=== PATIENT | male | born 1940 | race Caucasian/White ===

== ENCOUNTER 2022-07-09 08:30 | Outpatient (CLI) | payer MEDICARE, SELFPAY ==
--- NOTE | 2022-07-09 09:05 | ECHO_ITS ---
Patient Info Name: Pradeep Johnson Age: 81 years : 1940 Gender: Male Ht: 74 in Wt: 220 lbs BSA: 2.30 m2 HR: 73 bpm BP: 145 / 74 mmHg Technical Quality: Good Exam Date: 07/09/2022 9:34 AM Exam Location: [facility] Patient Status: Outpatient Admit Date: 07/09/2022 Staff Ordering Physician: Sonali Vasquez MD Wash Tub Machine Operator: Benito Georges RDCS Attending Provider: Sonali Vasquez MD Exam Type: CA echo doppler color flow Study Info Indications R01.1 - Cardiac murmur, unspecified Complete two-dimensional, color flow and Doppler transthoracic echocardiogram is performed. Summary 1. Complete two-dimensional, color flow and Doppler transthoracic echocardiogram is performed. 2. Left ventricular chamber dimension is normal. 3. Left ventricular systolic function is normal, estimated at 60-65%. 4. The left ventricular diastolic function is grade I diastolic dysfunction. 5. E/e' 12 is mildly elevated. 6. Left atrial chamber dimension is mildly enlarged. 7. There is mild aortic valve sclerosis. 8. The mitral valve has moderately calcified leaflets and moderately calcified annulus. 9. There is mild mitral valve regurgitation. 10. There is mild tricuspid valve regurgitation. Left Ventricle E/e' 12 is mildly elevated. Left ventricular chamber dimension is normal. Left ventricular systolic function is normal, estimated at 60-65%. The left ventricular diastolic function is grade I diastolic dysfunction. Right Ventricle Right ventricular systolic function is normal and with normal TAPSE 2.6 cm. Right ventricular chamber dimension is normal. Left Atria Left atrial chamber dimension is mildly enlarged. Right Atria Right atrial chamber dimension is normal. Aortic Valve The aortic valve is trileaflet. There is mild aortic valve sclerosis. There is no aortic valve stenosis. There is no aortic valve regurgitation. Pulmonic Valve There is no pulmonic regurgitation. Mitral Valve The mitral valve has moderately calcified leaflets and moderately calcified annulus. There is no mitral valve stenosis. There is mild mitral valve regurgitation. Tricuspid Valve There is mild tricuspid valve regurgitation. RVSP is not calculated due to an inadequate TR jet. Pericardium/Pleural There is no pericardial effusion. Inferior Vena Cava Normal inferior vena cava with >50% collapse upon inspiration consistent with normal right atrial pressure, 5 mmHg. Aorta The aortic root size at the sinus of Valsalva is normal. Left Ventricular Outflow Tract Name Value Normal LVOT 2D LVOT Diameter 2.3 cm LVOT Doppler LVOT Peak Gradient 5 mmHg LVOT Mean Gradient 3 mmHg LVOT VTI 21 cm LVOT VTI/AV VTI Ratio 0.8 LVOT Stroke Volume 83 ml LVOT CO 6.4 l/min LVOT CI 2.8 l/min/m2 Mitral Valve Name
== END 2022-07-09 08:31 | disposition home or self-care (01) ==
PROVIDERS: PCP Family Medicine; Visit Provider Family Medicine
DX: R01.1 Cardiac murmur, unspecified (principal); I10 Essential (primary) hypertension; I34.0 Nonrheumatic mitral (valve) insufficiency; I35.1 Nonrheumatic aortic (valve) insufficiency; I36.1 Nonrheumatic tricuspid (valve) insufficiency
CPT/HCPCS: 93306

== ENCOUNTER 2022-12-24 10:29 | Outpatient (CLI) | payer MEDICARE, SELFPAY ==
[2022-12-24 15:24] LABS: Alanine Aminotransferase 21 U/L (6-50); Albumin Level 4.3 g/dL (3.5-5.1); Alkaline Phosphatase 100 U/L (38-126); Anion Gap 6 mmol/L (8-16); Aspartate Amino Transferase 29 U/L (17-59); Bilirubin,Total 0.6 mg/dL (0.2-1.3); Blood Urea Nitrogen 11 mg/dL (9-20); Calcium 9.3 mg/dL (8.4-10.2); Carbon Dioxide 31 mmol/L (22-30); Chloride 101 mmol/L (98-107); Estimated Glomerular Filt Rate > 60; Glucose 98 mg/dL (65-110); Potassium 4.6 mmol/L (3.4-5.0); Sodium 138 mmol/L (137-145)
[2022-12-24 16:22] LABS: Hemoglobin A1C 5.7 % (<5.7)
== END 2022-12-24 10:30 | disposition home or self-care (01) ==
LOC: ANHGOSHLAB 10:31
PROVIDERS: PCP Family Medicine; Visit Provider Family Medicine
DX: R73.03 Prediabetes (principal); I10 Essential (primary) hypertension
CPT/HCPCS: 36415; 80053; 83036

== ENCOUNTER 2023-03-16 09:00 | Outpatient (NON) | payer MEDICARE, SELFPAY | END 2023-03-16 09:01 | disposition home or self-care (01) | LOC: ANHLAB 03-17 07:14 | PROVIDERS: PCP Family Medicine; Visit Provider Internal Medicine Gastroenterology | DX: Z12.11 Encounter for screening for malignant neoplasm of colon (principal) | CPT/HCPCS: 88305 ==

== ENCOUNTER 2023-03-16 10:11 | Day surgery (SDC) | payer MEDICARE, SELFPAY ==
[2023-02-06 11:25] VITALS: BMI 29.6
--- NOTE | 2023-03-15 12:55 | PM.HPGS ---
History of Present Illness History of Present Illness Consent: Risks, benefits, and alternatives have been discussed and questions answered. Patient agrees to proceed with procedure. Chief complaint: History Colon Polyps Narrative: Pradeep Johnson is a 82 year old male referred for colon cancer screening. He has history of polyps and also has a history of having pancreatic cancer for which he had a Whipple procedure Review of Systems Review of Systems: All systems reviewed & are unremarkable except as noted in HPI and below PMFSH Past Medical History Medical History BPH (benign prostatic hyperplasia) Environmental allergies Essential (primary) hypertension GERD without esophagitis History of colon polyps History of pancreatic cancer (~2014) OAB (overactive bladder) Prediabetes Surgical History Surgical History H/O vasectomy (~1970) History of cataract surgery (~2021) History of colonoscopy with polypectomy (~2017) Dr Pathak History of pancreatectomy (~2014) Whipple Family History Family History Other Family history of malignant neoplasm Hypertension Social History Social History Smoking status: Never smoker Alcohol intake: current Drinks per week: 7 Alcohol use details: 1 beer daily Substance use: never Substance use type: does not use Lack of Transportation: No Lack of Food: Never True Current Housing: I Have Housing Concerned About Future Housing: No Difficulty Paying Gas/Electric Bills: No Difficulty Paying for Meds: No Currently Unemployed: No Education: High School Diploma/GED Difficulty w/ Childcare or Family Care: No Living arrangements: with family Additional living arrangements comments: Occupation/Education: retired Gender identity (if verbalized by the patient): Male Sexual Orientation (if Verbalized by the Patient): Straight or Heterosexual Spiritual care concerns: No Agree to blood products: Yes Meds Home Medications and Allergies Home Medications Medication Instructions Recorded Confirmed Type aspirin 81 mg tablet,delayed 81 mg PO DAILY 11/08/20 03/16/23 History release (Adult Aspirin Regimen) cholecalciferol (vitamin D3) 50 50 mcg PO DAILY 03/18/21 07/24/23 History mcg (2,000 unit) capsule xpcbyz-alrcukwt-yvpcbkp 2 cap PO BID 11/08/20 03/16/23 History 24,000-76,000-120,000 unit capsule,delayed rel (Creon) oxybutynin chloride 5 mg 5 mg PO DAILY 06/18/22 03/16/23 History tablet,extended release 24 hr cyanocobalamin (vitamin B-12) 1,000 mcg sublingual DAILY #90 tabs 07/02/22 03/16/23 Rx 1,000 mcg sublingual tablet tamsulosin 0.4 mg capsule (Flomax) 0.4 mg PO DAILY #90 caps 11/06/22 03/16/23 Rx metoprolol succinate 25 mg 25 mg PO DAILY #90 tabs 12/12/22 03/16/23 Rx tablet,extended release 24 hr pantoprazole 20 mg tablet,delayed 20 mg PO QAM #90 tabs 12/12/22 03/16/23 Rx release amlodipine 10 mg tablet 10 mg PO DAILY #90 tabs 02/05/23 03/16/23 Rx Claritin 10 mg BYMOUTH DAILY 03/16/23 03/16/23 History Allergies Allergy/AdvReac Type Severity Reaction Status Date / Time povidone-iodine Allergy Unknown Unknown Verified 03/16/23 11:27 soap Allergy Unknown unknown Verified 03/16/23 11:27 Exam Resp: Auscultation: clear to auscultation bilaterally Cardio: Rate: regular rate Rhythm: regular rhythm GI: GI Palp: Yes Soft to palpation and No Tenderness to palpation present (GI) Assessment and Plan Assessment and plan (1) Colon cancer screening: Code(s): Z12.11 - Encounter for screening for malignant neoplasm of colon Status: Acute Assessment and Plan: Colonoscopy with possible biopsy or polypectomy or cautery or injection of substances.
--- NOTE | 2023-03-16 07:04 | WPDANESEPPF ---
Anes - Initial Pre Proc Eval Procedure: Operation Date: 03/16/23 12:30 Proposed Procedures p Diagnostic Colonoscopy - Avery Dumas MD Date/Time: 03/16/23 07:04 Surgeon: Avery Dumas MD Pre Op Diagnosis: History Colon Polyps Patient Data Age: 82 Gender: M Height: 1.88 m Weight: 105 kg Allergies Allergy/AdvReac Type Severity Reaction Status Date / Time povidone-iodine Allergy Unknown Unknown Verified 03/16/23 11:27 soap Allergy Unknown unknown Verified 03/16/23 11:27 Home Medications Medication Instructions Recorded Confirmed Type aspirin 81 mg tablet,delayed 81 mg PO DAILY 11/08/20 03/16/23 History release (Adult Aspirin Regimen) cholecalciferol (vitamin D3) 50 50 mcg PO DAILY 11/08/20 03/16/23 History mcg (2,000 unit) capsule dcrely-bfnektsc-vuczjok 2 cap PO BID 11/08/20 03/16/23 History 24,000-76,000-120,000 unit capsule,delayed rel (Creon) oxybutynin chloride 5 mg 5 mg PO DAILY 06/18/22 03/16/23 History tablet,extended release 24 hr cyanocobalamin (vitamin B-12) 1,000 mcg sublingual DAILY #90 tabs 07/02/22 03/16/23 Rx 1,000 mcg sublingual tablet tamsulosin 0.4 mg capsule (Flomax) 0.4 mg PO DAILY #90 caps 11/06/22 03/16/23 Rx metoprolol succinate 25 mg 25 mg PO DAILY #90 tabs 12/12/22 03/16/23 Rx tablet,extended release 24 hr pantoprazole 20 mg tablet,delayed 20 mg PO QAM #90 tabs 12/12/22 03/16/23 Rx release amlodipine 10 mg tablet 10 mg PO DAILY #90 tabs 02/05/23 03/16/23 Rx Claritin 10 mg BYMOUTH DAILY 03/16/23 03/16/23 History Patient hx anesthesia problems: none Family hx anesthesia problems: none Results Review: All pre-operative results and documents have been reviewed as part of the pre-operative evaluation. FORMERLY [facility], [facility] Past Medical History Medical History BPH (benign prostatic hyperplasia) Environmental allergies Essential (primary) hypertension GERD without esophagitis History of colon polyps History of pancreatic cancer (~2014) OAB (overactive bladder) Prediabetes Surgical History Surgical History H/O vasectomy (~1970) History of cataract surgery (~2021) History of colonoscopy with polypectomy (~2017) Dr Pathak History of pancreatectomy (~2014) Whipple Family History Family History Other Family history of malignant neoplasm Hypertension Social History Social History Smoking status: Never smoker Alcohol intake: current Drinks per week: 7 Alcohol use details: 1 beer daily Substance use: never Substance use type: does not use Lack of Transportation: No Lack of Food: Never True Current Housing: I Have Housing Concerned About Future Housing: No Difficulty Paying Gas/Electric Bills: No Difficulty Paying for Meds: No Currently Unemployed: No Education: High School Diploma/GED Difficulty w/ Childcare or Family Care: No Living arrangements: with family Additional living arrangements comments: Occupation/Education: retired Gender identity (if verbalized by the patient): Male Sexual Orientation (if Verbalized by the Patient): Straight or Heterosexual Spiritual care concerns: No Agree to blood products: Yes Anes - Eval Final PreProcedure Day of Procedure 03/16/23 07:04 Patient weight: overweight Heart: regular rate and rhythm Lungs: clear to auscultation Airway: Mallampati scale class II Neurological: alert and oriented Last oral intake: >/= 8 hours ASA classification: III Emergent: no Anesthetic plan: proceed Anesthesia type and monitoring: general GIVS and standard monitoring Results Review: All pre-operative results and documents have been reviewed as part of the pre-operative evaluation. Informed Consent: The patient's anesthetic plan and its attendant risks and
[2023-03-16 11:36] VITALS: BP 158/78; PULSE 92; RESP 16; TEMP 37; O2SAT 94
[2023-03-16] MEDS: LACTATED RINGERS 1,000 ML 150 ML IV CONT (11:45)
[2023-03-16 12:30] VITALS: BP 127/66; PULSE 70; RESP 16; O2SAT 95
[2023-03-16 12:40] VITALS: BP 117/70; PULSE 70; RESP 20; O2SAT 99
[2023-03-16 12:50] VITALS: BP 139/77; PULSE 66; RESP 18; O2SAT 99
--- NOTE | 2023-03-16 13:55 | WPDANESPN ---
Anes - Prog Note Post-Op Date/Time: 03/16/23 13:55 Cardiovascular status: normal Respiratory status: normal Airway patency: baseline Mental status: baseline Post-Op hydration status: normal Vital Signs: Last Vital Signs Temp 37.0 C 03/16/23 11:36 Pulse 66 03/16/23 12:50 Resp 18 03/16/23 12:50 BP 139/77 03/16/23 12:50 Pulse Ox 99 03/16/23 12:50 O2 Del Method Room Air 03/16/23 12:50 Pain Score (VAS): 0 I/O: Intake & Output 03/15/23 03/16/23 03/16/23 23:59 07:59 15:59 Intake Total 300 Balance 300 Post-procedural complaints: none Patient Feedback: Patient satisfied with anesthetic care. Other Findings: Patient vital signs back to baseline. Patient denies nausea and vomiting. Patient's pain under control. Patient OK for discharge.
== END 2023-03-16 13:12 | disposition home or self-care (01) ==
PROVIDERS: PCP Family Medicine; Visit Provider Internal Medicine Gastroenterology
PROC: 0DJD8ZZ Inspection of Lower Intestinal Tract, Via Natural or Artificial Opening Endoscopic (ICD-10-PCS; CPT 45378; principal; 2023-03-16 12:30)
DX: Z12.11 Encounter for screening for malignant neoplasm of colon (principal)
CPT/HCPCS: 45385

== ENCOUNTER 2023-07-02 13:26 | Inpatient (IN) | payer MEDICARE, SELFPAY ==
[2023-07-02] VITALS (7 sets, daily range): BP systolic 106–146; BP diastolic 48–93; PULSE 84–90; RESP 14–21; TEMP 36.6–37.1; O2SAT 98–100; BMI 27.1
--- NOTE | ~2023-07-02 | CT_ITS ---
EXAMINATION: CTA abdomen pelvis DATE: 07/02/2023 14:11 INDICATION: Melanoma and syncope TECHNIQUE: Computed tomographic angiography (CTA) of the abdomen and pelvis was performed with 100 mL Omnipaque-350 intravenous contrast. Maximum intensity projection 3D-reconstructions of the aorta and other arteries were constructed by the technologist on a separate workstation. The dose-length produ ct (DLP) was 601.30 mGy-cm. Automated exposure control and iterative reconstruction technique were em ployed. COMPARISON: 11/10/2014 FINDINGS: Minimal dependent atelectasis is present in the lung bases. The heart size is normal. No an eurysm or dissection of the abdominal aorta. The celiac axis, superior mesenteric artery, and inferio r mesenteric artery are normal at their origins. There are two left and one right renal arteries. The re is calcified atherosclerosis without hemodynamically significant stenosis in the internal iliac ar teries. Surgical changes of Whipple procedure are noted. The liver, spleen, and adrenal glands are normal. Th ere are peripelvic cysts of the kidneys. No pathologically enlarged abdominal or pelvic lymph nodes a re identified. No free intraperitoneal gas or evidence of bowel obstruction. There are bridging osteo phytes at multiple levels in the spine, consistent with diffuse idiopathic skeletal hyperostosis (DIS H). IMPRESSION: 1. No CT correlate for the patient's symptoms. Unremarkable CTA abdomen and pelvis. Reviewed, dictated and finalized at location L. 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 No CT correlate for the patient's symptoms. Unremarkable CTA abdomen and pel vis.
[2023-07-02 13:55] LABS: Basophils Absolute Auto 0.1 K/mm3 (0.0-0.1); Basophils Percent Auto 0.9 % (0.2-1.2); Eosinophils Absolute Auto 0.1 K/mm3 (0-0.3); Eosinophils Percent Auto 1.3 % (0-4.4); Hemoglobin 7.7 g/dL (14.0-18.0); Immature Granulocyte Absolute 0.03 K/mm3 (0.00-0.031); Immature Granulocyte Percent A 0.4 % (0-0.5); Lymphocytes Absolute Auto 2.74 K/mm3 (0.9-3.2); Lymphocytes Percent Auto 33.6 % (18.3-44.2); Mean Corpuscular HGB Conc 30.8 g/dl (32-36); Mean Corpuscular Hemoglobin 27.8 pg (26-34); Mean Corpuscular Volume 90.3 fl (80-100); Mean Platelet Volume 11.1 fl (7.4-10.4); Monocytes Absolute Auto 0.6 K/mm3 (0.1-0.6); Monocytes Percent Auto 7.5 % (2.6-8.5); Neutrophils Absolute Auto 4.6 K/mm3 (1.3-6.7); Neutrophils Percent Auto 56.3 % (45.5-73.1); Platelet Count Result 249 k/mm3 (150-375); Red Blood Count 2.77 M/mm3 (4.6-6.20); Red Cell Distribution Width 14.7 % (11.5-14.5); White Blood Count 8.2 K/mm3 (4.5-10.0)
[2023-07-02 14:06] LABS: Prothrombin Time 13.8 Seconds (11.1-14.7)
[2023-07-02 14:07] LABS: Partial Thromboplastin Time 23.3 SECONDS (22.3-36.8)
[2023-07-02 14:10] LABS: Alanine Aminotransferase 15 U/L (6-50); Albumin Level 2.8 g/dL (3.5-5.1); Alkaline Phosphatase 65 U/L (38-126); Anion Gap 7 mmol/L (8-16); Aspartate Amino Transferase 14 U/L (17-59); Bilirubin,Total 0.3 mg/dL (0.2-1.3); Blood Urea Nitrogen 25 mg/dL (9-20); Calcium 7.9 mg/dL (8.4-10.2); Carbon Dioxide 23 mmol/L (22-30); Chloride 107 mmol/L (98-107); Estimated CRCL calculation 78 ml/min; Estimated Glomerular Filt Rate > 60; Glucose 162 mg/dL (65-110); Potassium 3.7 mmol/L (3.4-5.0); Sodium 137 mmol/L (137-145)
[2023-07-02 14:10] LABS: Estimated CRCL calculation 78 ml/min; Estimated Glomerular Filt Rate > 60
--- NOTE | 2023-07-02 14:12 | ED.SYNCOPE ---
HPI - Syncope General Chief Complaint: Syncope Stated Complaint: GI bleed Time Seen by Provider: 07/02/23 13:32 Source: patient and family (son; also patient's though limited historian given dementia) Mode of arrival: EMS Limitations: no limitations History of Present Illness HPI narrative: This is an 82 yo with PMH Whipple procedure with resection of duodenum (2014) who presents with concern for GI bleed. For the past day he has had dark black tarry stools. Denies being on anticoagulation. This has never happened before. He denies abdominal pain or rectal pain. He reportedly had a syncopal episode in front of EMS. He becomes tearful stating that lately he has been drinking 1 beer/night given the stress of caring for his of 60 years who has dementia. Medication list also includes vitamin B12 and pantoprazole 20mg Related Data Home Medications Medication Instructions Recorded Confirmed aspirin 81 mg tablet,delayed 81 mg PO DAILY 11/08/20 07/02/23 release (Adult Aspirin Regimen) cholecalciferol (vitamin D3) 50 50 mcg PO DAILY 11/08/20 07/02/23 mcg (2,000 unit) capsule ypwppe-bvpkdmze-yeihyav 2 cap PO TIDWM 11/08/20 07/02/23 24,000-76,000-120,000 unit capsule,delayed rel (Creon) Claritin 10 mg BYMOUTH DAILY 03/16/23 07/02/23 multivitamin (Daily Multi-Vitamin 1 tablet PO DAILY 06/23/23 07/02/23 tablet) naproxen sodium 220 mg capsule 220 mg PO DAILY PRN Pain (Scale 06/23/23 07/02/23 Score 1-3) oxybutynin chloride 5 mg tablet 5 mg PO QHS 06/23/23 07/02/23 Allergies Allergy/AdvReac Type Severity Reaction Status Date / Time povidone-iodine Allergy Intermediate Rash Verified 07/03/23 13:20 soap Allergy Unknown unknown Verified 07/03/23 13:20 [facility] Past Medical History Medical History (Updated 07/04/23 @ 13:20 by Karen Higuera MD) BPH (benign prostatic hyperplasia) Environmental allergies Essential (primary) hypertension GERD without esophagitis History of colon polyps History of pancreatic cancer (~2014) OAB (overactive bladder) Prediabetes Vitamin B12 deficiency Vitamin D deficiency Surgical History Surgical History (Updated 07/04/23 @ 13:06 by Karen Higuera MD) H/O vasectomy (~1970) History of cataract surgery (~2021) History of colonoscopy with polypectomy (~2017) Dr Pathak History of pancreatectomy (~2014) 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 Family History Family History Other Family history of malignant neoplasm Hypertension Social History Social History (Updated 07/04/23 @ 13:03 by Karen Higuera MD) Smoking status: Never smoker Alcohol intake: current Drinks per week: 7 Alcohol use details: 1 beer daily; occasional whiskey Substance use: never Substance use type: does not use Lack of Transportation: No Lack of Food: Never True Current Housing: I Have Housing Concerned About Future Housing: No Difficulty Paying Gas/Electric Bills: No Difficulty Paying for Meds: No Currently Unemployed: No Education: High School Diploma/GED Difficulty w/ Childcare or Family Care: No Living arrangements: with family Additional living arrangements comments: (together for 60 years) Occupation/Education: retired Gender identity (if verbalized by the patient): Male Sexual Orientation (if Verbalized by the Patient): Straight or Heterosexual Spiritual care concerns: No Agree to blood products: Yes Exam Const: General: healthy appearing, no acute distress and alert; No confusion or diaphoretic Orientation/consciousness: patient oriented x3 Limitations: no limitations HENMT: Head: normal to inspection, no contusions, no hematomas and no lacerations Other: gross auditory acuity intact Eyes: Direct Ophthalmoscopy: no photophobia Other: pale conjunctiva Resp: Effort & Inspection: normal respiratory effort, not labored, no retractions, not tachyp
[2023-07-02 16:21] LABS: Hematocrit 23.3 % (42.0-52.0); Hemoglobin 7.4 g/dL (14.0-18.0)
[2023-07-02] MEDS: PANTOPRAZOLE SODIUM IV 40 MG VIAL 80 MG IV PUSH (17:03)
[2023-07-02] MEDS: TUBING, BLOOD SET 1 EACH XX (17:28)
[2023-07-02] MEDS: SODIUM CHLORIDE 0.9% IV 250 ML 30 ML IV CONT (17:28)
--- NOTE | 2023-07-02 18:49 | PC.NURSE ---
c/o frequent flatulence. no rectal bleeding or stools since arrival to ed.
--- NOTE | 2023-07-02 19:45 | PM.IMHP ---
H&P: HPI History of Present Illness Date/Time: 07/02/23 19:45 Chief Complaint: Syncopal episodes Narrative: patient present to the ED for evaluation syncopal episodes. he said that he got off bed in the morning and felt dizzy and nearly fell. he used the bathroom had dark colored stool and he nearly passed out during this time, his stated that he had some bright red blood mixed with dark stool. Denied vomiting, chest pain, shortness of breath or fever. he was found to be anemic with HB of 7.4 on arrival to the ED and he received 1 unit of PRBC since he was symptomatic. protonix was also given. He feel little better curretnly. Denied dizziness while lying in bed but once he sits up, or stand or strains during BM, this happens. Review of Systems Review of Systems: All systems reviewed & are unremarkable except as noted in HPI and below PMFSH Past Medical History Medical History BPH (benign prostatic hyperplasia) Environmental allergies Essential (primary) hypertension GERD without esophagitis History of colon polyps History of pancreatic cancer (~2014) OAB (overactive bladder) Prediabetes Vitamin B12 deficiency Vitamin D deficiency Surgical History Surgical History H/O vasectomy (~1970) History of cataract surgery (~2021) History of colonoscopy with polypectomy (~2017) Dr Pathak History of pancreatectomy (~2014) Whipple Family History Family History Other Family history of malignant neoplasm Hypertension Social History Social History Smoking status: Never smoker Alcohol intake: current Drinks per week: 7 Alcohol use details: 1 beer daily Substance use: never Substance use type: does not use Lack of Transportation: No Lack of Food: Never True Current Housing: I Have Housing Concerned About Future Housing: No Difficulty Paying Gas/Electric Bills: No Difficulty Paying for Meds: No Currently Unemployed: No Education: High School Diploma/GED Difficulty w/ Childcare or Family Care: No Living arrangements: with family Additional living arrangements comments: Occupation/Education: retired Gender identity (if verbalized by the patient): Male Sexual Orientation (if Verbalized by the Patient): Straight or Heterosexual Spiritual care concerns: No Agree to blood products: Yes Meds Home Medications and Allergies Home Medications Medication Instructions Recorded Confirmed Type aspirin 81 mg tablet,delayed 81 mg PO DAILY 11/08/20 07/02/23 History release (Adult Aspirin Regimen) cholecalciferol (vitamin D3) 50 50 mcg PO DAILY 11/08/20 07/02/23 History mcg (2,000 unit) capsule fbjgha-mzhmzrvz-ubhllmc 2 cap PO TIDWM 11/08/20 07/02/23 History 24,000-76,000-120,000 unit capsule,delayed rel (Creon) cyanocobalamin (vitamin B-12) 1,000 mcg sublingual DAILY #90 tabs 07/02/22 07/02/23 Rx 1,000 mcg sublingual tablet pantoprazole 20 mg tablet,delayed 20 mg PO QAM #90 tabs 12/12/22 07/02/23 Rx release amlodipine 10 mg tablet 10 mg PO DAILY #90 tabs 02/05/23 07/02/23 Rx Claritin 10 mg BYMOUTH DAILY 03/16/23 07/02/23 History metoprolol succinate 25 mg 25 mg PO DAILY #90 tabs 06/17/23 07/02/23 Rx tablet,extended release 24 hr multivitamin (Daily Multi-Vitamin 1 tablet PO DAILY 06/23/23 07/02/23 History tablet) naproxen sodium 220 mg capsule 220 mg PO DAILY PRN Pain (Scale 06/23/23 07/02/23 History Score 1-3) oxybutynin chloride 5 mg tablet 5 mg PO QHS 06/23/23 07/02/23 History Allergies Allergy/AdvReac Type Severity Reaction Status Date / Time povidone-iodine Allergy Intermediate Rash Verified 07/02/23 22:13 soap Allergy Unknown unknown Verified 07/02/23 13:33 Vital Signs Vital Signs - 24 hr 07/02/23 13:28
[2023-07-02 20:25] LABS: Magnesium 1.9 mg/dL (1.6-2.3)
[2023-07-02 20:37] LABS: Troponin I < 0.012 ng/mL (0.000-0.034)
[2023-07-02 20:52] LABS: Hematocrit 24.5 % (42.0-52.0)
--- NOTE | 2023-07-02 21:57 | ADMGEN ---
This patient, Pradeep Johnson, was admitted to [facility] Surg Room 314-02. Patient/family oriented to hospital policies and general routines including ID bracelet, bed and alarms, visiting hours, pain management, procedures, bathroom and other care routines, personal items, smoking policy, room service/diet, and visiting hours. Information on how to activate the Rapid Response Team has been discussed. Patient/Family are encouraged to report perceived risks to care and to ask questions if they do not understand what they are told or what they should do.
[2023-07-03] VITALS (36 sets, daily range): BP systolic 101–152; BP diastolic 49–94; PULSE 71–116; RESP 12–22; TEMP 36.1–37.3; O2SAT 97–100
[2023-07-03] MEDS: PANTOPRAZOLE SODIUM IV 80 MG in SODIUM CHLORIDE 0.9% IV 500 ML 50 MG IV CONT ×3 (02:02→23:44)
[2023-07-03 02:05] LABS: Glucose Point of Care 181 mg/dl (65-105)
--- NOTE | 2023-07-03 02:14 | P.PNCROSS_ITS ---
Event Note Event Note Event Note: Rapid response was called on this patient admitted for upper GI bleed and sympt omatic anemia at about 2:00 a.m. he had large volume bowel movement, that is dark and maroon colored, initially received 1 unit of packed RBC today and repeat hemoglobin came back 8.0 , initially 7.4 on ED arrival. He became diaphoretic and tachycardic while having bowel movement, his blood pressure remained stable. Examination reveals on elderly patient, awake alert and orientedx4, with stable vital signs which continued to improve, stat hemoglobin was ordered, transfusion of 2 packed RBC ordered, I requested to consult GI but I was told that he only takes call in the morning. Patient will be transferred to IMU. Plan: Continue Protonix drip, transfused 2 units of packed RBC, check hemoglobin after each unit, continue close observation of patient
[2023-07-03 02:16] LABS: Hematocrit 23.5 % (42.0-52.0); Hemoglobin 7.5 g/dL (14.0-18.0)
--- NOTE | 2023-07-03 02:43 | PC.NURSE ---
0010 went to pts room with my ELECTRICIAN'S HELPER Tabby. Pt had alarge loose stool with blood in it. we were attempting to clean him and would have to stop as he would need to go more. Charge nurse Ash was called to room as this continued. She ordered an H & H. The Pt became ashen looking VS obtained and rapid responce called. Protonix drip started. report called to ICU. Pt transported to ICU 10.
[2023-07-03 06:31] LABS: Basophils Absolute Auto 0.1 K/mm3 (0.0-0.1); Basophils Percent Auto 0.5 % (0.2-1.2); Eosinophils Percent Auto 0.1 % (0-4.4); Hematocrit 21.9 % (42.0-52.0); Hemoglobin 7.1 g/dL (14.0-18.0); Immature Granulocyte Absolute 0.04 K/mm3 (0.00-0.031); Immature Granulocyte Percent A 0.4 % (0-0.5); Lymphocytes Absolute Auto 2.46 K/mm3 (0.9-3.2); Lymphocytes Percent Auto 25.9 % (18.3-44.2); Mean Corpuscular HGB Conc 32.4 g/dl (32-36); Mean Corpuscular Hemoglobin 28.3 pg (26-34); Mean Corpuscular Volume 87.3 fl (80-100); Monocytes Absolute Auto 0.7 K/mm3 (0.1-0.6); Monocytes Percent Auto 7.2 % (2.6-8.5); Neutrophils Absolute Auto 6.3 K/mm3 (1.3-6.7); Neutrophils Percent Auto 65.9 % (45.5-73.1); Platelet Count Result 205 k/mm3 (150-375); Red Blood Count 2.51 M/mm3 (4.6-6.20); Red Cell Distribution Width 14.8 % (11.5-14.5); White Blood Count 9.5 K/mm3 (4.5-10.0)
[2023-07-03 06:44] LABS: Anion Gap 3 mmol/L (8-16); Blood Urea Nitrogen 23 mg/dL (9-20); Calcium 7.3 mg/dL (8.4-10.2); Carbon Dioxide 24 mmol/L (22-30); Chloride 113 mmol/L (98-107); Estimated CRCL calculation 83 ml/min; Estimated Glomerular Filt Rate > 60; Glucose 118 mg/dL (65-110); Potassium 3.6 mmol/L (3.4-5.0); Sodium 140 mmol/L (137-145)
--- NOTE | 2023-07-03 09:03 | PC.NURSE ---
Updated Dr. Mederos. RN to transfuse 4th unit of PRBC, then redraw Hgb.
--- NOTE | 2023-07-03 09:30 | WPDGICN ---
Assessment and Plan Assessment and plan (1) Gastrointestinal bleeding: Code(s): K92.2 - Gastrointestinal hemorrhage, unspecified Status: Acute Assessment and Plan: He 1st had dark stools, which turned black 2 days ago. He then became lightheaded yesterday and thinks he passed out for few minutes. He has seen his primary care provider on Thursday and hemoglobin was found to be low at 11.6. Arrangements were made to follow-up in a few months but now on admission he was down to 7.4. He has received 3 units of blood. He has had no dark or bloody stools yet today. He does take Naprosyn daily. (2) Low hemoglobin: Code(s): D64.9 - Anemia, unspecified Status: Acute Assessment and Plan: Secondary to gastrointestinal bleeding. (3) Syncopal episodes: Code(s): R55 - Syncope and collapse Status: Acute Assessment and Plan: he had syncope at home likely due to the rapid loss of blood. Diastolic blood pressures have been low, mostly in the 60s. He does still feel lightheaded if he sits up. (4) History of pancreatic cancer: Onset Date: ~2014 Code(s): Z85.07 - Personal history of malignant neoplasm of pancreas Status: Acute (5) Diverticulosis: Code(s): K57.90 - Diverticulosis of intestine, part unspecified, without perforation or abscess without bleeding Status: Acute Assessment and Plan: Found on colonoscopy a few months ago. (6) Hypotension: Code(s): I95.9 - Hypotension, unspecified Status: Acute Assessment and Plan: blood pressure is adequate but on the low side. He feels lightheaded if he sits up. His blood has been infused. He he currently has normal saline at 30 cc an hour. I will increase this to 100. Plan Continue IV fluids. EGD today GI Consult Note Consult date/time: 07/03/23 09:30 HPI: Pradeep Johnson is a 82 year old male Was admitted yesterday with syncope and gastrointestinal bleeding. He states that he had noticed his stools were very dark on Thursday. He had just had a health checkup on Thursday and had blood work done that revealed a somewhat low hemoglobin of 11.6. At home he notices stool became pitch black. He has had no abdominal pain. He had a colonoscopy earlier this year which was not remarkable. There were couple small polyps and diverticulosis. He remains weak and lightheaded. He has just finished receiving his 3rd unit of blood Review of Systems Review of Systems: All systems reviewed & are unremarkable except as noted in HPI and below PMFSH Past Medical History Medical History BPH (benign prostatic hyperplasia) Environmental allergies Essential (primary) hypertension GERD without esophagitis History of colon polyps History of pancreatic cancer (~2014) OAB (overactive bladder) Prediabetes Vitamin B12 deficiency Vitamin D deficiency Surgical History Surgical History H/O vasectomy (~1970) History of cataract surgery (~2021) History of colonoscopy with polypectomy (~2017) Dr Pathak History of pancreatectomy (~2014) Whipple Family History Family History Other Family history of malignant neoplasm Hypertension Social History Social History Smoking status: Never smoker Alcohol intake: current Drinks per week: 7 Alcohol use details: 1 beer daily Substance use: never Substance use type: does not use Lack of Transportation: No Lack of Food: Never True Current Housing: I Have Housing Concerned About Future Housing: No Difficulty Paying Gas/Electric Bills: No Difficulty Paying for Meds: No Currently Unemployed: No Education: High School Diploma/GED Difficulty w/ Childcare or Family Care: No Living arrangements:
[2023-07-03] MEDS: SODIUM CHLORIDE 0.9% IV 250 ML 30 ML IV CONT (09:55)
[2023-07-03] MEDS: METOPROLOL SUCCINATE EXT REL 25 MG TABCR PO (09:55)
[2023-07-03] MEDS: amLODIPine BESYLATE 5 MG TABLET 10 MG PO (09:55)
[2023-07-03] MEDS: CHOLECALCIFEROL 1,000 UNITS TABLET 2000 UNITS PO (09:56)
--- NOTE | 2023-07-03 10:24 | PC.NURSE ---
Spouse and daughter at bedside. Updated on plan of care.
--- NOTE | 2023-07-03 10:29 | PC.NURSE ---
Update from PINKY Messer RN. Patient scheduled for 1500 today. Patient and family notified of time.
[2023-07-03] MEDS: SODIUM CHLORIDE 0.9% IV 1,000 ML 100 ML IV CONT ×2 (10:37→23:36)
[2023-07-03 13:13] LABS: Hematocrit 27.4 % (42.0-52.0); Hemoglobin 8.8 g/dL (14.0-18.0); Mean Corpuscular HGB Conc 32.1 g/dl (32-36); Mean Corpuscular Hemoglobin 27.6 pg (26-34); Mean Corpuscular Volume 85.9 fl (80-100); Mean Platelet Volume 10.9 fl (7.4-10.4); Platelet Count Result 193 k/mm3 (150-375); Red Blood Count 3.19 M/mm3 (4.6-6.20); Red Cell Distribution Width 15.6 % (11.5-14.5); White Blood Count 8.2 K/mm3 (4.5-10.0)
--- NOTE | 2023-07-03 13:13 | PC.NURSE ---
Patient off unit to GI lab via stretcher with RNx2 at bedside.
[2023-07-03] MEDS: LACTATED RINGERS 1,000 ML 150 ML IV CONT (13:27)
--- NOTE | 2023-07-03 13:49 | WPDANESEPPF ---
Anes - Initial Pre Proc Eval Procedure: Operation Date: 07/03/23 15:00 Proposed Procedures p Esophagogastroduodenoscopy - Avery Dumas MD Date/Time: 07/03/23 13:49 Surgeon: Derrick Sesay MD Pre Op Diagnosis: gi bleed,symptomatic anemia requiring transfusion Patient Data Age: 82 Gender: M Height: 1.88 m Weight: 95.9 kg Last Vital Signs Temp 98.9 F 07/03/23 13:21 Pulse 88 07/03/23 13:21 Resp 18 07/03/23 13:21 BP 130/57 L 07/03/23 13:21 Pulse Ox 99 07/03/23 13:21 O2 Del Method Room Air 07/03/23 13:21 Allergies Allergy/AdvReac Type Severity Reaction Status Date / Time povidone-iodine Allergy Intermediate Rash Verified 07/03/23 13:20 soap Allergy Unknown unknown Verified 07/03/23 13:20 Home Medications Medication Instructions Recorded Confirmed Type aspirin 81 mg tablet,delayed 81 mg PO DAILY 11/08/20 07/02/23 History release (Adult Aspirin Regimen) cholecalciferol (vitamin D3) 50 50 mcg PO DAILY 11/08/20 07/02/23 History mcg (2,000 unit) capsule jouulo-bllxgfdw-cidismt 2 cap PO TIDWM 11/08/20 07/02/23 History 24,000-76,000-120,000 unit capsule,delayed rel (Creon) cyanocobalamin (vitamin B-12) 1,000 mcg sublingual DAILY #90 tabs 07/02/22 07/02/23 Rx 1,000 mcg sublingual tablet pantoprazole 20 mg tablet,delayed 20 mg PO QAM #90 tabs 12/12/22 07/02/23 Rx release amlodipine 10 mg tablet 10 mg PO DAILY #90 tabs 02/05/23 07/02/23 Rx Claritin 10 mg BYMOUTH DAILY 03/16/23 07/02/23 History metoprolol succinate 25 mg 25 mg PO DAILY #90 tabs 06/17/23 07/02/23 Rx tablet,extended release 24 hr multivitamin (Daily Multi-Vitamin 1 tablet PO DAILY 06/23/23 07/02/23 History tablet) naproxen sodium 220 mg capsule 220 mg PO DAILY PRN Pain (Scale 06/23/23 07/02/23 History Score 1-3) oxybutynin chloride 5 mg tablet 5 mg PO QHS 06/23/23 07/02/23 History Laboratory Tests 07/02/23 07/02/23 07/02/23 13:48 13:50 14:01 WBC 8.2 K/mm3 (4.5-10.0) RBC 2.77 L M/mm3 (4.6-6.20) Hgb 7.7 L g/dL (14.0-18.0) Hct 25.0 L % (42.0-52.0) MCV 90.3 fl (80-100) MCH 27.8 pg (26-34) MCHC 30.8 L g/dl (32-36) RDW 14.7 H % (11.5-14.5) Plt Count 249 k/mm3 (150-375) MPV 11.1 H fl (7.4-10.4) Immature Gran % (Auto) 0.4 % (0-0.5) Neut % (Auto) 56.3 % (45.5-73.1) Lymph % (Auto) 33.6 % (18.3-44.2) [place] % (Auto) 7.5 % (2.6-8.5) Eos % (Auto) 1.3 % (0-4.4) Baso % (Auto) 0.9 % (0.2-1.2) Lymph # (Auto) 2.74 K/mm3 (0.9-3.2) [place] # (Auto) 0.6 K/mm3 (0.1-0.6) Eos # (Auto) 0.1 K/mm3 (0-0.3) Baso # (Auto) 0.1 K/mm3 (0.0-0.1) Abs Immat Gran (auto) 0.03 K/mm3 (0.00-0.031) Absolute Neuts (auto) 4.6 K/mm3 (1.3-6.7) Absolute Nucleated RBC 0.0 K/mm3 (0.0-0.012) Nucleated RBC % 0.0 % (0.0-0.2) PT 13.8 Seconds (11.1-14.7) INR 1.0 APTT 23.3 SECONDS (22.3-36.8) Sodium 137 mmol/L (137-145) Potassium 3.7 mmol/L (3.4-5.0) Chloride 107 mmol/L (98-107) Carbon Dioxide 23 mmol/L (22-30) Anion Gap 7 L mmol/L (8-16) BUN 25 H D mg/dL (9-20) Creatinine 0.70 mg/dL 0.70 L mg/dL (0.7-1.3) (0.8-1.5) Estim Creat Clear Calc 78 ml/min 78 ml/min Estimated GFR > 60 > 60 (59 - ) (59 - ) Glucose 162 H mg/dL (65-110) POC Capillary Glucose Calcium 7.9 L mg/dL (8.4-10.2) Magnesium Total Bilirubin 0.3 mg/dL (0.2-1.3) AST 14 L U/L (17-59) ALT 15 U/L (6-50) Alkaline Phosphatase 65 U/L (38-126) Troponin I Total Protein 5.0 L g/dL (6.3-8.2) Albumin 2.8 L g/dL (3.5-5.1) Blood Type
[2023-07-03] MEDS: EPINEPHrine INJ 1 MG/10 ML SYRINGE XX (14:05)
--- NOTE | 2023-07-03 14:20 | PC.NURSE ---
Received report from CARY Medrano.
--- NOTE | 2023-07-03 14:40 | PC.NURSE ---
Patient back in room without issue. No complaint of pain, no sign or symptom of distress.
--- NOTE | 2023-07-03 17:21 | PM.IMPN ---
Progress Note: A&P Assessment and Plan (1) Gastrointestinal bleeding: Code(s): K92.2 - Gastrointestinal hemorrhage, unspecified Status: Acute (2) Symptomatic anemia: Code(s): D64.9 - Anemia, unspecified Status: Acute (3) Syncopal episodes: Code(s): R55 - Syncope and collapse Status: Acute Plan S/p 4 units of pRBC, monitor H and H Syncope likely from anemia continue PPI and for EGD today NPO until EGD exam monitor in ICU DVT prophylaxis SCDs, no AC due to GI bleed Subjective Date/time seen: 07/03/23 17:21 Interval history: presented with syncopal episodes and melena stool, noted to anemia in the ER and started on pRBC transfusion For EGD today patient note dmuch improvement at bedside Review of Systems Review of Systems: All systems reviewed & are unremarkable except as noted in HPI and below Exam Narrative: gen: Alert and oriented x4, not in distress HEENT: normcocephalic atraumatic EOMI, conjuctival is pale, oral mucosa dry REsp: Clear to auscultation bilaterally Cardiac: regular rate and rhythm, trace pedal edema GI: Soft, nontender, non distended, hypoactive bowel sounds MSK/SKIn: no rash, sensation a nd circulation intact, extremities are warm neuro: No focal neurological deficit Objective Data Vital Signs Vital Signs: Vital Signs - 24 hr 07/02/23 17:24 07/02/23 17:40 07/02/23 18:44 Temperature 97.8 F 97.9 F 98.1 F Pulse Rate 84 89 89 Respiratory Rate 21 H 20 20 Blood Pressure 106/59 L 116/93 H 125/59 L Pulse Oximetry 98 100 100 Oxygen Delivery Oxygen Flow Rate 07/02/23 21:30 07/03/23 01:43 07/03/23 02:02 Temperature 98.7 F 97.5 F L Pulse Rate 88 115 H 110 H Respiratory Rate 14 22 H 16 Blood Pressure 146/67 H 106/80 131/63 Pulse Oximetry 100 100 100 Oxygen Delivery Oxygen Flow Rate 07/03/23 02:19 07/03/23 02:35 07/03/23 02:40 Temperature 97.0 F L 97.1 F L Pulse Rate 102 H 106 H 116 H Respiratory Rate 20 18 18 Blood Pressure 133/94 H 109/49 L 116/70 Pulse Oximetry 100 100 100 Oxygen Delivery Room Air Oxygen Flow Rate 07/03/23 03:35 07/03/23 04:35 07/03/23 04:00 Temperature 98.7 F 98.6 F Pulse Rate 100 100 100 Respiratory Rate 15 16 Blood Pressure 121/54 L 119/60 Pulse Oximetry 100 100 Oxygen Delivery Oxygen Flow Rate 07/03/23 04:00 07/03/23 04:00 07/03/23 04:35 Temperature 98.6 F Pulse Rate 100 100 Respiratory Rate 16 17 Blood Pressure 119/60 Pulse Oximetry 100 100 100 Oxygen Delivery Room Air Room Air Oxygen Flow Rate 07/03/23 06:44 07/03/23 06:00 07/03/23 07:00 Temperature 98.7 F 98.4 F Pulse Rate 96 97 95 Respiratory Rate 12 19 Blood Pressure 127/72 125/69 Pulse Oximetry 100 100 Oxygen Delivery Oxygen Flow Rate 07/03/23 07:35 07/03/23 08:00 07/03/23 08:00 Temperature 97.9 F Pulse Rate 84 81 Respiratory Rate 18 17 14 Blood Pressure 128/60 128/60 Pulse Oximetry 100 99 99 Oxygen Delivery Room Air Oxygen Flow Rate 07/03/23 08:51 07/03/23 09:52 07/03/23 09:55 Temperature 97.9 F 98.5 F Pulse Rate 84 95 89 Respiratory Rate 20 12 Blood Pressure 133/61 130/62 Pulse Oximetry 100 100 Oxygen Delivery Oxygen Flow Rate 07/03/23 10:06 07/03/23 08:00 07/03/23 10:00 Temperature 98.4 F Pulse Rate 86 84 86 Respiratory Rate 15 Blood Pressure 137/67 Pulse Oximetry 100 Oxygen Delivery Oxygen Flow Rate 07/03/23 11:08 07/03/23 11:29 07/03/23 11:35 Temperature 98.6 F 99.1 F Pulse Rate 87 85 86 Respiratory Rate 17 21 H 14 Blood Pressure 125/65 125/65 139/66 Pulse Oximetry 99 98 98 Oxygen Delivery Oxygen Flow Rate 07/03/23 12:00 07/03/23 12:00 07/03/23 13:21 Temperature 98.9 F Pulse Rate 79 88 Respiratory Rate 20 18 Blood Pressure 130/57 L Pulse Oximetry 97 99 Oxygen Delivery Room Air Room Air Oxygen Flow Rate 07/03/23 14:15 07/03/23 14:25 07/03/23 14:34 Temperature
[2023-07-03] MEDS: LIPASE/AMYLASE/PROTEASE 12,000 UNITS CAP 4 CAP PO (17:23)
[2023-07-04] VITALS (15 sets, daily range): BP systolic 103–127; BP diastolic 51–60; PULSE 60–78; RESP 15–22; TEMP 36.2–36.9; O2SAT 97–100
[2023-07-04 04:32] LABS: Basophils Percent Auto 0.6 % (0.2-1.2); Eosinophils Absolute Auto 0.2 K/mm3 (0-0.3); Eosinophils Percent Auto 2.5 % (0-4.4); Hematocrit 23.6 % (42.0-52.0); Hemoglobin 7.4 g/dL (14.0-18.0); Immature Granulocyte Absolute 0.02 K/mm3 (0.00-0.031); Immature Granulocyte Percent A 0.3 % (0-0.5); Lymphocytes Absolute Auto 2.67 K/mm3 (0.9-3.2); Mean Corpuscular HGB Conc 31.4 g/dl (32-36); Mean Corpuscular Hemoglobin 27.9 pg (26-34); Mean Corpuscular Volume 89.1 fl (80-100); Mean Platelet Volume 11.4 fl (7.4-10.4); Monocytes Absolute Auto 0.7 K/mm3 (0.1-0.6); Monocytes Percent Auto 9.3 % (2.6-8.5); Neutrophils Absolute Auto 3.6 K/mm3 (1.3-6.7); Neutrophils Percent Auto 50.3 % (45.5-73.1); Platelet Count Result 181 k/mm3 (150-375); Red Blood Count 2.65 M/mm3 (4.6-6.20); Red Cell Distribution Width 15.6 % (11.5-14.5); White Blood Count 7.2 K/mm3 (4.5-10.0)
[2023-07-04 04:52] LABS: Alanine Aminotransferase 11 U/L (6-50); Alkaline Phosphatase 37 U/L (38-126); Anion Gap 3 mmol/L (8-16); Aspartate Amino Transferase 17 U/L (17-59); Bilirubin,Total 0.4 mg/dL (0.2-1.3); Blood Urea Nitrogen 16 mg/dL (9-20); Calcium 7.4 mg/dL (8.4-10.2); Carbon Dioxide 21 mmol/L (22-30); Chloride 114 mmol/L (98-107); Estimated CRCL calculation 95 ml/min; Estimated Glomerular Filt Rate > 60; Glucose 98 mg/dL (65-110); Potassium 3.8 mmol/L (3.4-5.0); Sodium 138 mmol/L (137-145)
[2023-07-04] MEDS: CHOLECALCIFEROL 1,000 UNITS TABLET 2000 UNITS PO (08:28)
[2023-07-04] MEDS: METOPROLOL SUCCINATE EXT REL 25 MG TABCR PO (08:28)
[2023-07-04] MEDS: LIPASE/AMYLASE/PROTEASE 12,000 UNITS CAP 4 CAP PO ×3 (08:28→17:00)
[2023-07-04] MEDS: amLODIPine BESYLATE 5 MG TABLET 10 MG PO (08:29)
--- NOTE | 2023-07-04 09:33 | WPDGIPROGNO ---
Progress Note: A&P Assessment and Plan (1) Gastrointestinal bleeding: Code(s): K92.2 - Gastrointestinal hemorrhage, unspecified Status: Acute Assessment and Plan: He 1st had dark stools, which turned black 2 days ago. He then became lightheaded yesterday and thinks he passed out for few minutes. He has seen his primary care provider on Thursday and hemoglobin was found to be low at 11.6. Arrangements were made to follow-up in a few months but now on admission he was down to 7.4. He has received 3 units of blood. He has had no dark or bloody stools yet today. He does take Naprosyn daily. EGD did reveal bleeding from small ulceration just beyond the gastroenterostomy. I injected epinephrine, cauterized with a gold probe and then applied 2 Endoclips. He is not having any abdominal pain at this time. (2) Low hemoglobin: Code(s): D64.9 - Anemia, unspecified Status: Acute Assessment and Plan: Secondary to gastrointestinal bleeding. Hemoglobin today is 7.4, down from 8.8 yesterday (3) Syncopal episodes: Code(s): R55 - Syncope and collapse Status: Acute Assessment and Plan: he had syncope at home likely due to the rapid loss of blood. Diastolic blood pressures have been low, mostly in the 60s. He does still feel lightheaded if he sits up. it appears that he will not need his antihypertensive medication after discharge or least not as high it does. (4) History of pancreatic cancer: Onset Date: ~2014 Code(s): Z85.07 - Personal history of malignant neoplasm of pancreas Status: Acute (5) Diverticulosis: Code(s): K57.90 - Diverticulosis of intestine, part unspecified, without perforation or abscess without bleeding Status: Acute Assessment and Plan: Found on colonoscopy a few months ago. (6) Hypotension: Code(s): I95.9 - Hypotension, unspecified Status: Acute Assessment and Plan: blood pressure is adequate but on the low side. He feels lightheaded if he sits up. His blood has been infused. He he currently has normal saline at 30 cc an hour. I will increase this to 100. Plan Advance diet slowly. Start with full liquids. Continue to monitor H&H. Transfuse if when necessary. The patient was told to avoid Naprosyn and other NSAIDs in the future or, if absolutely necessary to take them after eating which he states he generally does do. Subjective Date/time seen: 07/04/23 09:33 prior to admission he had several black tarry stools. He stated he has not had a bowel movement since admission. This actually is a good sign indicating that the bleeding has parent Manuela stopped. Discussed with him the endoscopy and explained that we cauterized and clipped the bleeding ulcer in the proximal jejunum. I to hold him that the risk of bleeding is high for the 1st 48 hours. Consequently he cannot be discharged today as he would like. I told Him that the earliest he would go home would be possibly tomorrow. Exam Const: General: cooperative, healthy appearing and other ( tired appearing) Orientation/consciousness: patient oriented x3 HENMT: Head: normal to inspection Ears: hearing grossly normal bilaterally Mouth: Yes Normal oral and palatal mucosa present Eyes: General: appearance normal, both eyes and all related structures Neck: Neck: normal visual inspection Chest: Chest palpation & inspection: normal inspection of the chest Resp: Effort & Inspection: normal respiratory effort Auscultation: clear to auscultation bilaterally Cardio: Rate: regular rate Rhythm: regular rhythm GI: Inspection: normal to inspection Auscultation: normal bowel sounds Skin: General skin exam: pallor Neuro: General: patient oriented x3 Speech: normal speech Objective Data Vital Signs Vital Signs: Vital Signs - 24 hr 07/03/23 09:52 07/03/23 09:55 07/03/23 10:06 Temperature 36.9 C 36.9 C Pulse Rate 95 89
[2023-07-04] MEDS: SODIUM CHLORIDE 0.9% IV 1,000 ML 100 ML IV CONT ×2 (09:42→19:51)
[2023-07-04] MEDS: PANTOPRAZOLE SODIUM IV 80 MG in SODIUM CHLORIDE 0.9% IV 500 ML 50 MG IV CONT (12:04)
--- NOTE | 2023-07-04 12:39 | WPDANESPN ---
Anes - Prog Note Post-Op Date/Time: 07/04/23 12:39 Cardiovascular status: other (anemia) Respiratory status: normal Airway patency: baseline Mental status: baseline Post-Op hydration status: normal Vital Signs: Last Vital Signs Temp 36.4 C L 07/04/23 08:00 Pulse 70 07/04/23 08:28 Resp 16 07/04/23 08:00 BP 112/58 L 07/04/23 08:00 Pulse Ox 100 07/04/23 08:00 O2 Del Method Room Air 07/04/23 08:00 O2 Flow Rate 2 07/03/23 14:15 Pain Score (VAS): 0/10 I/O: Intake & Output 07/03/23 07/04/23 07/04/23 23:59 07:59 15:59 Intake Total 2080 1800 Output Total 100 875 Balance 1979 - 1800 Laboratory Tests 07/04/23 03:48 07/04/23 03:48 07/03/23 07/04/23 13:02 03:48 WBC 8.2 7.2 RBC 3.19 L 2.65 L Hgb 8.8 L 7.4 L Hct 27.4 L 23.6 L MCV 85.9 89.1 MCH 27.6 27.9 MCHC 32.1 31.4 L RDW 15.6 H 15.6 H Plt Count 193 181 MPV 10.9 H 11.4 H Immature Gran % (Auto) 0.3 Neut % (Auto) 50.3 Lymph % (Auto) 37.0 [place] % (Auto) 9.3 H Eos % (Auto) 2.5 Baso % (Auto) 0.6 Lymph # (Auto) 2.67 [place] # (Auto) 0.7 H Eos # (Auto) 0.2 Baso # (Auto) 0.0 Abs Immat Gran (auto) 0.02 Absolute Neuts (auto) 3.6 Absolute Nucleated RBC 0.0 Nucleated RBC % 0.0 Sodium 138 Potassium 3.8 Chloride 114 H Carbon Dioxide 21 L Anion Gap 3 L BUN 16 Creatinine 0.60 L Estim Creat Clear Calc 95 Estimated GFR > 60 Glucose 98 Calcium 7.4 L Total Bilirubin 0.4 AST 17 ALT 11 Alkaline Phosphatase 37 L Total Protein 4.0 L Albumin 2.0 L Post-procedural complaints: none Patient Feedback: Patient satisfied with anesthetic care.
--- NOTE | 2023-07-04 13:38 | PM.IMPN ---
Progress Note: A&P Assessment and Plan (1) Gastrointestinal bleeding: Code(s): K92.2 - Gastrointestinal hemorrhage, unspecified Status: Acute (2) Symptomatic anemia: Code(s): D64.9 - Anemia, unspecified Status: Acute (3) Syncopal episodes: Code(s): R55 - Syncope and collapse Status: Acute Plan 82-year-old medical history of Whipple procedure with resection of duodenum into the present dark black tarry stool and syncopal episode. Hemoglobin came back at 7.7. Hemoglobin 2 days ago 11.6. Not on anticoagulation. CTA abdomen and pelvis unremarkable. Transfused 2 units PRBC on admission. GI was consulted. Underwent EGD on 07/03/2023 with intestinal ulcers with oozing blood proximal jejunum. Injection 5 mL epinephrine was administered to control bleeding. Along with Endoclips. Remains on Protonix drip continue to monitor H&H. Subjective Date/time seen: 07/04/23 13:38 Interval history: 82-year-old medical history of Whipple procedure with resection of duodenum into the present dark black tarry stool and syncopal episode. Hemoglobin came back at 7.7. Hemoglobin 2 days ago 11.6. Not on anticoagulation. CTA abdomen and pelvis unremarkable. Transfused 2 units PRBC on admission. GI was consulted. Underwent EGD on 07/03/2023 with intestinal ulcers with oozing blood proximal jejunum. Injection 5 mL epinephrine was administered to control bleeding. Along with Endoclips. Remains on Protonix drip continue to monitor H&H. Review of Systems Review of Systems: All systems reviewed & are unremarkable except as noted in HPI and below Exam Narrative: gen: Alert and oriented x4, not in distress HEENT: normcocephalic atraumatic EOMI, conjuctival is pale, oral mucosa dry REsp: Clear to auscultation bilaterally Cardiac: regular rate and rhythm, trace pedal edema GI: Soft, nontender, non distended, hypoactive bowel sounds MSK/SKIn: no rash, sensation a nd circulation intact, extremities are warm neuro: No focal neurological deficit Objective Data Vital Signs Vital Signs: Vital Signs - 24 hr 07/03/23 14:15 07/03/23 14:25 07/03/23 14:34 Temperature Pulse Rate 108 H 89 89 Respiratory Rate 22 H 21 H 20 Blood Pressure 148/87 H 152/66 H 148/68 H Pulse Oximetry 99 99 97 Oxygen Delivery Nasal Cannula Room Air Room Air Oxygen Flow Rate 2 07/03/23 14:54 07/03/23 14:56 07/03/23 16:00 Temperature 98.3 F 98.5 F Pulse Rate 82 85 78 Respiratory Rate 17 17 Blood Pressure 142/71 H 126/63 Pulse Oximetry 99 98 Oxygen Delivery Oxygen Flow Rate 07/03/23 16:00 07/03/23 16:00 07/03/23 18:00 Temperature Pulse Rate 76 82 Respiratory Rate Blood Pressure Pulse Oximetry 98 Oxygen Delivery Room Air Oxygen Flow Rate 07/03/23 20:00 07/03/23 20:00 07/03/23 22:00 Temperature Pulse Rate 78 71 Respiratory Rate Blood Pressure Pulse Oximetry Oxygen Delivery Room Air Oxygen Flow Rate 07/03/23 20:01 07/03/23 21:02 07/03/23 22:01 Temperature Pulse Rate 82 78 71 Respiratory Rate 18 20 18 Blood Pressure 125/56 L 103/61 105/59 L Pulse Oximetry 97 99 100 Oxygen Delivery Oxygen Flow Rate 07/03/23 23:01 07/04/23 00:00 07/04/23 00:00 Temperature Pulse Rate 80 73 Respiratory Rate 18 Blood Pressure 101/58 L Pulse Oximetry 97 Oxygen Delivery Room Air Oxygen Flow Rate 07/04/23 00:01 07/04/23 02:00 07/04/23 04:00 Temperature 98.5 F Pulse Rate 73 73 Respiratory Rate 22 H Blood Pressure 103/51 L Pulse Oximetry 99 Oxygen Delivery Room Air Oxygen Flow Rate 07/04/23 04:00 07/04/23 06:00 07/04/23 04:00 Temperature 98.2 F Pulse Rate 73 71 71 Respiratory Rate 15 Blood Pressure 109/54 L Pulse Oximetry 97 Oxygen Delivery Oxygen Flow Rate 07/04/23 08:28 07/04/23 08:00 07/04/23 08:00 Temperature 97.5 F L Pulse Rate 70 67 Respiratory Rate 16 Blood Pressure 112/58 L
[2023-07-04 14:27] LABS: Hematocrit 24.4 % (42.0-52.0); Hemoglobin 7.4 g/dL (14.0-18.0)
[2023-07-05] VITALS (24 sets, daily range): BP systolic 95–130; BP diastolic 39–75; PULSE 57–81; RESP 14–21; TEMP 36.4–36.8; O2SAT 97–100
[2023-07-05] MEDS: PANTOPRAZOLE SODIUM IV 80 MG in SODIUM CHLORIDE 0.9% IV 500 ML 50 MG IV CONT (00:09)
[2023-07-05 04:27] LABS: Basophils Percent Auto 0.4 % (0.2-1.2); Eosinophils Absolute Auto 0.4 K/mm3 (0-0.3); Eosinophils Percent Auto 5.6 % (0-4.4); Hematocrit 22.9 % (42.0-52.0); Immature Granulocyte Absolute 0.02 K/mm3 (0.00-0.031); Immature Granulocyte Percent A 0.3 % (0-0.5); Lymphocytes Absolute Auto 2.39 K/mm3 (0.9-3.2); Lymphocytes Percent Auto 35.3 % (18.3-44.2); Mean Corpuscular HGB Conc 30.6 g/dl (32-36); Mean Corpuscular Hemoglobin 28.1 pg (26-34); Mean Platelet Volume 10.8 fl (7.4-10.4); Monocytes Absolute Auto 0.5 K/mm3 (0.1-0.6); Neutrophils Absolute Auto 3.4 K/mm3 (1.3-6.7); Neutrophils Percent Auto 50.4 % (45.5-73.1); Platelet Count Result 190 k/mm3 (150-375); Red Blood Count 2.49 M/mm3 (4.6-6.20); Red Cell Distribution Width 15.2 % (11.5-14.5); White Blood Count 6.8 K/mm3 (4.5-10.0)
[2023-07-05] MEDS: FLUTICASONE PROPIONATE 0.05% NA SPR 16 GM BTL (*BKC) 1 SPRAY NASAL ×2 (04:52→20:04)
[2023-07-05] MEDS: SALINE 0.65% NAS SOLN 44 ML BTL 1 SPRAY NASAL (04:52)
[2023-07-05 05:05] LABS: Anion Gap 3 mmol/L (8-16); Blood Urea Nitrogen 7 mg/dL (9-20); Calcium 7.4 mg/dL (8.4-10.2); Carbon Dioxide 21 mmol/L (22-30); Chloride 113 mmol/L (98-107); Estimated CRCL calculation 95 ml/min; Estimated Glomerular Filt Rate > 60; Glucose 97 mg/dL (65-110); Potassium 3.3 mmol/L (3.4-5.0); Sodium 137 mmol/L (137-145)
[2023-07-05] MEDS: SODIUM CHLORIDE 0.9% IV 250 ML 30 ML IV CONT (06:01)
[2023-07-05] MEDS: LIPASE/AMYLASE/PROTEASE 12,000 UNITS CAP 4 CAP PO ×3 (08:29→17:54)
[2023-07-05] MEDS: METOPROLOL SUCCINATE EXT REL 25 MG TABCR PO (08:30)
[2023-07-05] MEDS: amLODIPine BESYLATE 5 MG TABLET 10 MG PO (08:30)
[2023-07-05] MEDS: CHOLECALCIFEROL 1,000 UNITS TABLET 2000 UNITS PO (08:30)
--- NOTE | 2023-07-05 08:33 | WPDGIPROGNO ---
Progress Note: A&P Assessment and Plan (1) Gastrointestinal bleeding: Code(s): K92.2 - Gastrointestinal hemorrhage, unspecified Status: Acute Assessment and Plan: He 1st had dark stools, which turned black 2 days ago. He then became lightheaded yesterday and thinks he passed out for few minutes. He has seen his primary care provider on Thursday and hemoglobin was found to be low at 11.6. Arrangements were made to follow-up in a few months but now on admission he was down to 7.4. He has received 3 units of blood. He has had no dark or bloody stools yet today. He does take Naprosyn daily. EGD did reveal bleeding from small ulceration just beyond the gastroenterostomy. I injected epinephrine, cauterized with a gold probe and then applied 2 Endoclips. He is not having any abdominal pain at this time. hemoglobin has dropped to 7. No evidence of bleeding. (2) Low hemoglobin: Code(s): D64.9 - Anemia, unspecified Status: Acute Assessment and Plan: Secondary to gastrointestinal bleeding. Hemoglobin today is 7.4, down from 8.8 yesterday Currently at 7.0. He will receive 1 more unit of blood before being transferred out of ICU. (3) Syncopal episodes: Code(s): R55 - Syncope and collapse Status: Acute Assessment and Plan: he had syncope at home likely due to the rapid loss of blood. Diastolic blood pressures have been low, mostly in the 60s. He does still feel lightheaded if he sits up. it appears that he will not need his antihypertensive medication after discharge or least not as high it does. (4) History of pancreatic cancer: Onset Date: ~2014 Code(s): Z85.07 - Personal history of malignant neoplasm of pancreas Status: Acute (5) Diverticulosis: Code(s): K57.90 - Diverticulosis of intestine, part unspecified, without perforation or abscess without bleeding Status: Acute Assessment and Plan: Found on colonoscopy a few months ago. (6) Hypotension: Code(s): I95.9 - Hypotension, unspecified Status: Acute Assessment and Plan: blood pressure is adequate but on the low side. He feels lightheaded if he sits up. His blood has been infused. He he currently has normal saline at 30 cc an hour. I will increase this to 100. Now he is rehydrated this is no longer an issue. Plan Advance diet slowly. Start with full liquids. Continue to monitor H&H. Transfuse if when necessary. The patient was told to avoid Naprosyn and other NSAIDs in the future or, if absolutely necessary to take them after eating which he states he generally does do. Will change Protonix to 40 mg b.i.d. instead of continuous infusion. Will order MiraLax 17 g daily okay from my perspective to transfer to the floor. I will have him return for repeat EGD in 6 weeks to ensure healing Subjective Date/time seen: 07/05/23 08:33 he is tolerating his full liquid diet. He has no abdominal pain. He has had no bowel movements. Although there are no overt signs of bleeding, his hemoglobin has drifted down to 7. He is going to receive 1 more unit of blood now. Exam Const: General: cooperative, healthy appearing and other ( tired appearing) Orientation/consciousness: patient oriented x3 HENMT: Head: normal to inspection Ears: hearing grossly normal bilaterally Mouth: Yes Normal oral and palatal mucosa present Eyes: General: appearance normal, both eyes and all related structures Neck: Neck: normal visual inspection Chest: Chest palpation & inspection: normal inspection of the chest Resp: Effort & Inspection: normal respiratory effort Auscultation: clear to auscultation bilaterally Cardio: Rate: regular rate Rhythm: regular rhythm GI: Inspection: normal to inspection Auscultation: normal bowel sounds Skin: General skin exam: pallor Neuro: General: patient oriented x3 Speech: normal speech Objective Data Vital Signs
[2023-07-05] MEDS: polyethylene glycoL 3350 17 GM POWD.PACK PO (10:01)
[2023-07-05] MEDS: CYANOCOBALAMIN 1,000 MCG TABLET 1000 MCG PO (10:02)
--- NOTE | 2023-07-05 12:22 | PM.IMPN ---
Progress Note: A&P Assessment and Plan (1) Gastrointestinal bleeding: Code(s): K92.2 - Gastrointestinal hemorrhage, unspecified Status: Acute Assessment and Plan: No acute bleeding noted, will continue monitor closely. (2) Symptomatic anemia: Code(s): D64.9 - Anemia, unspecified Status: Acute Assessment and Plan: Will transfuse 1 unit of blood and monitor closely. (3) Syncopal episodes: Code(s): R55 - Syncope and collapse Status: Acute Assessment and Plan: Stable (4) Hypokalemia: Code(s): E87.6 - Hypokalemia Status: Acute Assessment and Plan: Patient potassium is 3.3. Patient is going to get blood, hopefully potassium will improve. Will monitor closely. Plan 82-year-old medical history of Whipple procedure with resection of duodenum into the present dark black tarry stool and syncopal episode. Hemoglobin came back at 7.7. Hemoglobin 2 days ago 11.6. Not on anticoagulation. CTA abdomen and pelvis unremarkable. Transfused 2 units PRBC on admission. GI was consulted. Underwent EGD on 07/03/2023 with intestinal ulcers with oozing blood proximal jejunum. Injection 5 mL epinephrine was administered to control bleeding. Along with Endoclips. Remains on Protonix drip continue to monitor H&H. Subjective Date/time seen: 07/05/23 12:22 Interval history: Patient was seen during the morning rounds today. No acute episode of GI bleeding noted. Decrease abdominal pain. No shortness of breath or chest pain. Review of Systems Review of Systems: All systems reviewed & are unremarkable except as noted in HPI and below Exam Narrative: gen: Alert and oriented x4, not in distress HEENT: normcocephalic atraumatic EOMI, conjuctival is pale, oral mucosa dry REsp: Clear to auscultation bilaterally Cardiac: regular rate and rhythm, trace pedal edema GI: Soft, nontender, non distended, hypoactive bowel sounds MSK/SKIn: no rash, sensation a nd circulation intact, extremities are warm neuro: No focal neurological deficit Objective Data Vital Signs Vital Signs: Vital Signs - 24 hr 07/04/23 16:00 07/04/23 16:00 07/04/23 14:00 Temperature 36.3 C L Pulse Rate 69 67 Respiratory Rate 16 Blood Pressure 113/60 Pulse Oximetry 99 Oxygen Delivery Room Air 07/04/23 16:00 07/04/23 17:56 07/04/23 20:00 Temperature Pulse Rate 65 74 Respiratory Rate Blood Pressure Pulse Oximetry Oxygen Delivery Room Air 07/04/23 20:00 07/04/23 22:00 07/04/23 20:01 Temperature 36.8 C Pulse Rate 73 60 76 Respiratory Rate 16 Blood Pressure 127/57 L Pulse Oximetry 99 Oxygen Delivery 07/05/23 00:00 07/05/23 00:00 07/05/23 00:02 Temperature 36.7 C Pulse Rate 77 81 Respiratory Rate 18 Blood Pressure 114/54 L Pulse Oximetry 97 Oxygen Delivery Room Air 07/05/23 02:00 07/05/23 04:00 07/05/23 04:00 Temperature Pulse Rate 73 74 Respiratory Rate Blood Pressure Pulse Oximetry Oxygen Delivery Room Air 07/05/23 04:19 07/05/23 05:48 07/05/23 06:00 Temperature 36.6 C 36.7 C Pulse Rate 80 72 71 Respiratory Rate 19 18 Blood Pressure 112/57 L 100/39 L Pulse Oximetry 99 99 Oxygen Delivery 07/05/23 06:09 07/05/23 07:09 07/05/23 08:09 Temperature 36.6 C 36.6 C 36.4 C Pulse Rate 67 78 64 Respiratory Rate 14 15 19 Blood Pressure 106/39 L 111/51 L 103/53 L Pulse Oximetry 98 100 99 Oxygen Delivery 07/05/23 08:25 07/05/23 08:30 07/05/23 08:00 Temperature 36.4 C Pulse Rate 77 70 Respiratory Rate 21 H Blood Pressure 125/66 Pulse Oximetry 100 Oxygen Delivery Room Air 07/05/23 08:00 07/05/23 08:00 07/05/23 09:57 Temperature 36.4 C 36.6 C Pulse Rate 57 L 64 69 Respiratory Rate 19 17 Blood Pressure 103/53 L 112/71 Pulse Oximetry 99 99 Oxygen Delivery 07/05/23 10:00 07/05/23 10:12 Temperature 36.6 C Pulse Rate 70 76 Respiratory Rate 15 Bl
[2023-07-05 14:50] LABS: Hematocrit 28.7 % (42.0-52.0); Hemoglobin 9.2 g/dL (14.0-18.0); Mean Corpuscular HGB Conc 32.1 g/dl (32-36); Mean Corpuscular Hemoglobin 27.5 pg (26-34); Mean Corpuscular Volume 85.7 fl (80-100); Mean Platelet Volume 10.8 fl (7.4-10.4); Platelet Count Result 211 k/mm3 (150-375); Red Blood Count 3.35 M/mm3 (4.6-6.20); Red Cell Distribution Width 16.2 % (11.5-14.5); White Blood Count 6.9 K/mm3 (4.5-10.0)
[2023-07-05 15:12] LABS: Alanine Aminotransferase 17 U/L (6-50); Albumin Level 2.6 g/dL (3.5-5.1); Alkaline Phosphatase 57 U/L (38-126); Anion Gap 8 mmol/L (8-16); Aspartate Amino Transferase 17 U/L (17-59); Bilirubin,Total 0.4 mg/dL (0.2-1.3); Blood Urea Nitrogen 7 mg/dL (9-20); Calcium 7.8 mg/dL (8.4-10.2); Carbon Dioxide 21 mmol/L (22-30); Chloride 107 mmol/L (98-107); Estimated CRCL calculation 83 ml/min; Estimated Glomerular Filt Rate > 60; Glucose 112 mg/dL (65-110); Potassium 3.6 mmol/L (3.4-5.0); Sodium 136 mmol/L (137-145)
[2023-07-05 15:18] LABS: NT Pro B Type Natriuretic Pept 760 pg/mL (19.9-100)
[2023-07-05] MEDS: PANTOPRAZOLE SODIUM IV 40 MG VIAL IV PUSH (20:04)
[2023-07-05] MEDS: oxyBUTYnin CHLORIDE 5 MG TABLET PO (20:04)
[2023-07-06 05:26] VITALS: BP 131/54; PULSE 66; RESP 16; TEMP 36.4; O2SAT 100
[2023-07-06 05:57] LABS: Anion Gap 5 mmol/L (8-16); Blood Urea Nitrogen 6 mg/dL (9-20); Calcium 7.9 mg/dL (8.4-10.2); Carbon Dioxide 24 mmol/L (22-30); Chloride 108 mmol/L (98-107); Estimated CRCL calculation 83 ml/min; Estimated Glomerular Filt Rate > 60; Glucose 99 mg/dL (65-110); Potassium 3.5 mmol/L (3.4-5.0); Sodium 137 mmol/L (137-145)
[2023-07-06 06:05] LABS: Basophils Percent Auto 0.6 % (0.2-1.2); Eosinophils Absolute Auto 0.4 K/mm3 (0-0.3); Eosinophils Percent Auto 5.5 % (0-4.4); Hematocrit 27.1 % (42.0-52.0); Hemoglobin 8.7 g/dL (14.0-18.0); Immature Granulocyte Absolute 0.02 K/mm3 (0.00-0.031); Immature Granulocyte Percent A 0.3 % (0-0.5); Lymphocytes Percent Auto 34.8 % (18.3-44.2); Mean Corpuscular HGB Conc 32.1 g/dl (32-36); Mean Corpuscular Hemoglobin 27.6 pg (26-34); Mean Platelet Volume 11.1 fl (7.4-10.4); Monocytes Absolute Auto 0.6 K/mm3 (0.1-0.6); Monocytes Percent Auto 9.5 % (2.6-8.5); Neutrophils Absolute Auto 3.1 K/mm3 (1.3-6.7); Neutrophils Percent Auto 49.3 % (45.5-73.1); Platelet Count Result 209 k/mm3 (150-375); Red Blood Count 3.15 M/mm3 (4.6-6.20); Red Cell Distribution Width 15.9 % (11.5-14.5); White Blood Count 6.3 K/mm3 (4.5-10.0)
--- NOTE | 2023-07-06 07:21 | WPDGIPROGNO ---
Progress Note: A&P Assessment and Plan (1) Gastrointestinal bleeding: Code(s): K92.2 - Gastrointestinal hemorrhage, unspecified Status: Acute Assessment and Plan: He 1st had dark stools, which turned black 2 days ago. He then became lightheaded yesterday and thinks he passed out for few minutes. He has seen his primary care provider on Thursday and hemoglobin was found to be low at 11.6. Arrangements were made to follow-up in a few months but now on admission he was down to 7.4. He has received 3 units of blood. He has had no dark or bloody stools yet today. He does take Naprosyn daily. EGD did reveal bleeding from small ulceration just beyond the gastroenterostomy. I injected epinephrine, cauterized with a gold probe and then applied 2 Endoclips. He is not having any abdominal pain at this time. hemoglobin has dropped to 7. No evidence of bleeding. (2) Low hemoglobin: Code(s): D64.9 - Anemia, unspecified Status: Acute Assessment and Plan: Secondary to gastrointestinal bleeding. Hemoglobin today is 7.4, down from 8.8 yesterday Currently at 7.0. He will receive 1 more unit of blood before being transferred out of ICU. Following that transfusion his hemoglobin went from 7-9.2. Today it is 8.7 (3) Syncopal episodes: Code(s): R55 - Syncope and collapse Status: Acute Assessment and Plan: he had syncope at home likely due to the rapid loss of blood. Diastolic blood pressures have been low, mostly in the 60s. He does still feel lightheaded if he sits up. it appears that he will not need his antihypertensive medication after discharge or least not as high it does. (4) History of pancreatic cancer: Onset Date: ~2014 Code(s): Z85.07 - Personal history of malignant neoplasm of pancreas Status: Acute (5) Diverticulosis: Code(s): K57.90 - Diverticulosis of intestine, part unspecified, without perforation or abscess without bleeding Status: Acute Assessment and Plan: Found on colonoscopy a few months ago. (6) Hypotension: Code(s): I95.9 - Hypotension, unspecified Status: Acute Assessment and Plan: blood pressure is adequate but on the low side. He feels lightheaded if he sits up. His blood has been infused. He he currently has normal saline at 30 cc an hour. I will increase this to 100. Now he is rehydrated this is no longer an issue. Plan Advance diet slowly. Start with full liquids. Continue to monitor H&H. Transfuse if when necessary. The patient was told to avoid Naprosyn and other NSAIDs in the future or, if absolutely necessary to take them after eating which he states he generally does do. Will change Protonix to 40 mg b.i.d. instead of continuous infusion. Will order MiraLax 17 g daily okay from my perspective to be discharged today. I will have him return for repeat EGD in 6 weeks to ensure healing Subjective Date/time seen: 07/06/23 07:21 He feels good. He has had no further bleeding. His last hemoglobin is 8.7. He has had a small bowel movement. I had started him on MiraLax and offered him Dulcolax but he thinks he will be okay. physical therapy work with him he feels that he is strong enough to go home today. Exam Const: General: cooperative, healthy appearing and other ( tired appearing) Orientation/consciousness: patient oriented x3 HENMT: Head: normal to inspection Ears: hearing grossly normal bilaterally Mouth: Yes Normal oral and palatal mucosa present Eyes: General: appearance normal, both eyes and all related structures Neck: Neck: normal visual inspection Chest: Chest palpation & inspection: normal inspection of the chest Resp: Effort & Inspection: normal respiratory effort Auscultation: clear to auscultation bilaterally Cardio: Rate: regular rate Rhythm: regular rhythm GI: Inspection: normal to inspection Auscultation: normal bowel sounds
[2023-07-06 08:38] VITALS: PULSE 76
[2023-07-06] MEDS: METOPROLOL SUCCINATE EXT REL 25 MG TABCR PO (08:38)
[2023-07-06] MEDS: LIPASE/AMYLASE/PROTEASE 12,000 UNITS CAP 4 CAP PO ×3 (08:38→17:13)
[2023-07-06] MEDS: amLODIPine BESYLATE 5 MG TABLET 10 MG PO (08:38)
[2023-07-06] MEDS: polyethylene glycoL 3350 17 GM POWD.PACK PO (08:38)
[2023-07-06] MEDS: CYANOCOBALAMIN 1,000 MCG TABLET 1000 MCG PO (08:38)
[2023-07-06] MEDS: CHOLECALCIFEROL 1,000 UNITS TABLET 2000 UNITS PO (08:38)
[2023-07-06] MEDS: FLUTICASONE PROPIONATE 0.05% NA SPR 16 GM BTL (*BKC) 1 SPRAY NASAL (08:39)
[2023-07-06] MEDS: PANTOPRAZOLE SODIUM IV 40 MG VIAL IV PUSH (08:39)
[2023-07-06 13:37] VITALS: BP 108/54; PULSE 68; RESP 18; TEMP 36.6; O2SAT 98
--- NOTE | 2023-07-06 18:36 | PM.DS ---
DS: Admitting Diagnosis Discharge Date 07/06/23 Admitting Diagnosis GI bleed DS: Discharge Diagnosis Discharge Diagnosis Plan 1. GI bleed no further bleeding Hold naproxen 2. Anemia hb 8.7. no further need to transfuse no further bleeding 3. Syncope due to hypotension hold amlodipine 4. Hypotension hold amlodipine Advance diet slowly.? Start with full liquids. ? Continue to monitor H&H. ? Transfuse if when necessary. ? The patient was told to avoid Naprosyn and other NSAIDs in the future or, if absolutely necessary to take them after eating which he states he generally does do. ? Will change Protonix to 40 mg b.i.d. instead of continuous infusion. ? Will order MiraLax 17 g daily ?okay from GI perspective to? be discharged today. ? 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 Hemoglobin came back at 7.7.? Hemoglobin 2 days ago 11.6.? Not on anticoagulation.? CTA abdomen and pelvis unremarkable.? Transfused 2 units PRBC on admission.? GI was consulted.? Underwent EGD on 07/03/2023 with intestinal ulcers with oozing blood proximal jejunum.? Injection 5 mL epinephrine was administered to control bleeding.? Along with Endoclips.? Remains on Protonix drip continue to monitor H&H. Assessment and Plan (1) Gastrointestinal bleeding: ?Code(s): K92.2 - Gastrointestinal hemorrhage, unspecified ?Status:?Acute ?Assessment and Plan: He 1st had dark stools, which turned black 2 days ago.? He then became lightheaded yesterday and thinks he passed out for few minutes.? He has seen his primary care provider on Thursday and hemoglobin was found to be low at 11.6.? Arrangements were made to follow-up in a few months but now on admission he was down to 7.4.? He has received 3 units of blood. ? He has had no dark or bloody stools yet today.? He does take Naprosyn daily. ?EGD did reveal bleeding from small ulceration just beyond the gastroenterostomy.? I injected epinephrine, cauterized with a gold probe and then applied 2 Endoclips. ? He is not having any abdominal pain at this time. ?hemoglobin has dropped to 7.? No evidence of bleeding. (2) Low hemoglobin: ?Code(s): D64.9 - Anemia, unspecified ?Status:?Acute ?Assessment and Plan: ? Secondary to gastrointestinal bleeding. ? Hemoglobin today is 7.4, down from 8.8 yesterday ? Currently at 7.0. ? He will receive 1 more unit of blood before being transferred out of ICU. ? Following that transfusion his hemoglobin went from 7-9.2.? Today it is 8.7 (3) Syncopal episodes: ?Code(s): R55 - Syncope and collapse ?Status:?Acute ?Assessment and Plan: ?he had syncope at home likely due to the rapid loss of blood. ? Diastolic blood pressures have been low, mostly in the 60s.? He does? still feel lightheaded if he sits up. ?it appears that he will not need his antihypertensive medication after discharge or least not as high it does. (4) History of pancreatic cancer: ?Onset Date:?~2014 ?Code(s): Z85.07 - Personal history of malignant neoplasm of pancreas ?Status:?Acute (5) Diverticulosis: ?Code(s): K57.90 - Diverticulosis of intestine, part unspecified, without perforation or abscess without bleeding ?Status:?Acute ?Assessment and Plan: ??Found on colonoscopy a few months ago. (6) Hypotension: ?Code(s): I95.9 - Hypotension, unspecified ?Status:?Acute ?Assessment and Plan: ?blood pressure is adequate but on the low side.? He feels lightheaded if he sits up.? His blood has been? infused.? He he currently has normal saline at 30 cc an hour.? I will increase this to 100. ? Now he is rehydrated this is no longer an issue. Plan ? Advance diet slowly.? Start with full liquids. ? Continue
== END 2023-07-06 19:02 | disposition home or self-care (01) | DRG 378 ==
LOC: ANHED 14:04 → ANH3MEDSUR 21:55 → ANHICU 07-03 09:02 → ANH3MEDSUR 07-03 09:11 → ANHICU 07-03 09:11 → ANH2MED 07-05 16:38
PROVIDERS: Internal Medicine; Internal Medicine Gastroenterology; Student in an Organized Health Care Education/Training Program; Admitting Provider Internal Medicine; Emergency Provider Student in an Organized Health Care Education/Training Program; PCP Family Medicine; Visit Provider Internal Medicine
PROC: 0DJ08ZZ Inspection of Upper Intestinal Tract, Via Natural or Artificial Opening Endoscopic (ICD-10-PCS; CPT 43235; principal; 2023-07-03 15:00)
DX: K92.2 Gastrointestinal hemorrhage, unspecified (principal); K63.3 Ulcer of intestine; K92.1 Melena; I95.9 Hypotension, unspecified; D64.9 Anemia, unspecified; E53.8 Deficiency of other specified B group vitamins; E55.9 Vitamin D deficiency, unspecified; E87.6 Hypokalemia; I10 Essential (primary) hypertension; K21.9 Gastro-esophageal reflux disease without esophagitis; N40.0 Benign prostatic hyperplasia without lower urinary tract symptoms; Z85.07 Personal history of malignant neoplasm of pancreas; Z90.49 Acquired absence of other specified parts of digestive tract; Z79.82 Long term (current) use of aspirin
CPT/HCPCS: 36415; 36430; 74174; 80048; 80053; 82948; 83735; 83880; 84484; 85014; 85018; 85025; 85027; 85610; 85730; 86850; 86900; 86901; 86923; 96374; 97161; 97165; 99285; A9270; C9113; G0378; J0171; J2704; J7030; J7040; J7050; J7120; P9016; Q9967

== ENCOUNTER 2023-07-17 11:29 | Outpatient (CLI) | payer MEDICARE, SELFPAY ==
[2023-07-17 18:15] LABS: Basophils Absolute Auto 0.1 K/mm3 (0.0-0.1); Basophils Percent Auto 1.2 % (0.2-1.2); Eosinophils Absolute Auto 0.2 K/mm3 (0-0.3); Eosinophils Percent Auto 2.8 % (0-4.4); Hematocrit 34.4 % (42.0-52.0); Hemoglobin 10.5 g/dL (14.0-18.0); Immature Granulocyte Absolute 0.02 K/mm3 (0.00-0.031); Immature Granulocyte Percent A 0.3 % (0-0.5); Lymphocytes Absolute Auto 2.19 K/mm3 (0.9-3.2); Lymphocytes Percent Auto 28.8 % (18.3-44.2); Mean Corpuscular HGB Conc 30.5 g/dl (32-36); Mean Corpuscular Hemoglobin 26.3 pg (26-34); Mean Corpuscular Volume 86.2 fl (80-100); Mean Platelet Volume 10.5 fl (7.4-10.4); Monocytes Absolute Auto 0.8 K/mm3 (0.1-0.6); Monocytes Percent Auto 10.5 % (2.6-8.5); Neutrophils Absolute Auto 4.3 K/mm3 (1.3-6.7); Neutrophils Percent Auto 56.4 % (45.5-73.1); Platelet Count Result 337 k/mm3 (150-375); Red Blood Count 3.99 M/mm3 (4.6-6.20); Red Cell Distribution Width 15.5 % (11.5-14.5); White Blood Count 7.6 K/mm3 (4.5-10.0)
== END 2023-07-17 11:30 | disposition home or self-care (01) ==
LOC: ANHGOSHLAB 11:31
PROVIDERS: PCP Family Medicine; Visit Provider Family Medicine
DX: D64.9 Anemia, unspecified (principal); K92.2 Gastrointestinal hemorrhage, unspecified
CPT/HCPCS: 36415; 85025

== ENCOUNTER 2023-09-23 11:04 | Outpatient (CLI) | payer MEDICARE, SELFPAY ==
[2023-09-23 13:45] LABS: Basophils Absolute Auto 0.1 K/mm3 (0.0-0.1); Basophils Percent Auto 1.3 % (0.2-1.2); Eosinophils Absolute Auto 0.2 K/mm3 (0-0.3); Eosinophils Percent Auto 4.2 % (0-4.4); Hematocrit 34.3 % (42.0-52.0); Hemoglobin 9.9 g/dL (14.0-18.0); Immature Granulocyte Absolute 0.01 K/mm3 (0.00-0.031); Immature Granulocyte Percent A 0.2 % (0-0.5); Lymphocytes Absolute Auto 1.94 K/mm3 (0.9-3.2); Lymphocytes Percent Auto 35.5 % (18.3-44.2); Mean Corpuscular HGB Conc 28.9 g/dl (32-36); Mean Corpuscular Hemoglobin 21.5 pg (26-34); Mean Corpuscular Volume 74.4 fl (80-100); Mean Platelet Volume 10.5 fl (7.4-10.4); Monocytes Absolute Auto 0.5 K/mm3 (0.1-0.6); Monocytes Percent Auto 9.5 % (2.6-8.5); Neutrophils Absolute Auto 2.7 K/mm3 (1.3-6.7); Neutrophils Percent Auto 49.3 % (45.5-73.1); Platelet Count Result 223 k/mm3 (150-375); Red Blood Count 4.61 M/mm3 (4.6-6.20); Red Cell Distribution Width 19.5 % (11.5-14.5); White Blood Count 5.5 K/mm3 (4.5-10.0)
[2023-09-23 14:26] LABS: Platelet Estimate Adequate (Adequate)
[2023-09-23 14:27] LABS: Anisocytosis 2+ (NORMAL); Hypochromasia 1+ (NORMAL); Microcytosis 1+ (NORMAL); Schistocytes None Seen (NORMAL)
== END 2023-09-23 11:05 | disposition home or self-care (01) ==
LOC: ANHGOSHLAB 11:06
PROVIDERS: PCP Family Medicine; Visit Provider Family Medicine
DX: D64.9 Anemia, unspecified (principal)
CPT/HCPCS: 36415; 85025

== ENCOUNTER 2023-11-18 02:32 | Day surgery (SDC) | payer MEDICARE, SELFPAY ==
[2023-11-09 13:46] VITALS: BMI 26.6
--- NOTE | 2023-11-16 09:18 | SUR.PREOP ---
Patient called regarding upcoming procedure. Reviewed preop instructions, appointment times, and procedure prep.
[2023-11-18 07:42] VITALS: BP 143/60; PULSE 82; RESP 20; TEMP 36.2; O2SAT 98; BMI 28.8
[2023-11-18] MEDS: LACTATED RINGERS 1,000 ML 150 ML IV CONT (07:57)
--- NOTE | 2023-11-18 08:15 | WPDANESEPPF ---
Anes - Initial Pre Proc Eval Procedure: Operation Date: 11/18/23 09:00 Proposed Procedures p Esophagogastroduodenoscopy - Sergio Gray MD Date/Time: 11/18/23 08:15 Surgeon: Sergio Gray MD Pre Op Diagnosis: GERD Patient Data Age: 83 Gender: M Height: 1.88 m Weight: 101.9 kg Last Vital Signs Temp 97.1 F L 11/18/23 07:42 Pulse 82 11/18/23 07:42 Resp 20 11/18/23 07:42 BP 143/60 H 11/18/23 07:42 Pulse Ox 98 11/18/23 07:42 O2 Del Method Room Air 11/18/23 07:42 Allergies Allergy/AdvReac Type Severity Reaction Status Date / Time povidone-iodine Allergy Intermediate Rash Verified 11/18/23 07:40 Home Medications Medication Instructions Recorded Confirmed Type cholecalciferol (vitamin D3) 50 50 mcg PO DAILY 11/08/20 11/18/23 History mcg (2,000 unit) capsule cyanocobalamin (vitamin B-12) 1,000 mcg sublingual DAILY #90 tabs 07/02/22 11/18/23 Rx 1,000 mcg sublingual tablet Claritin 10 mg BYMOUTH DAILY 03/16/23 11/18/23 History metoprolol succinate 25 mg 25 mg PO DAILY #90 tabs 06/17/23 11/18/23 Rx tablet,extended release 24 hr multivitamin (Daily Multi-Vitamin 1 tablet PO DAILY 06/23/23 11/18/23 History tablet) oxybutynin chloride 5 mg tablet 5 mg PO QHS 06/23/23 11/18/23 History pantoprazole 40 mg tablet,delayed 40 mg PO QAM #90 tabs 10/19/23 11/18/23 Rx release [facility] 1 tab-cap PO DAILY 11/09/23 11/18/23 History amlodipine 10 mg tablet 10 mg PO DAILY #90 tabs 11/10/23 11/18/23 Rx tamsulosin 0.4 mg capsule 0.4 mg PO DAILY #90 caps 11/12/23 11/18/23 Rx Patient hx anesthesia problems: none Family hx anesthesia problems: none Results Review: All pre-operative results and documents have been reviewed as part of the pre-operative evaluation. 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 Family History Family History Other Family history of malignant neoplasm Hypertension Social History Social History Smoking status: Never smoker Alcohol intake: current Drinks per week: 7 Alcohol use details: 1 beer daily; occasional whiskey Substance use: never Substance use type: does not use Lack of Transportation: No Lack of Food: Never True Current Housing: I Have Housing Concerned About Future Housing: No Difficulty Paying Gas/Electric Bills: No Difficulty Paying for Meds: No Currently Unemployed: No Education: High School Diploma/GED Difficulty w/ Childcare or Family Care: No Living arrangements: with family Additional living arrangements comments: (together for 60 years) Occupation/Education: retired Gender identity (if verbalized by the patient): Male Sexual Orientation (if Verbalized by the Patient): Straight or Heterosexual Spiritual care concerns: No Agree to blood products: Yes Anes - Eval Final PreProcedure Day of Procedure 11/18/23 08:15 Patient weight: normal Heart: regular rate and rhythm Lungs: clear to auscultation Airway: Mallampati scale class II Neurological: alert and oriented Last oral intake: >/= 8 hours ASA classification: III Emergent: no Anesthetic plan: proceed Anesthesia type and monitoring
--- NOTE | 2023-11-18 08:25 | PM.HPGS ---
History of Present Illness History of Present Illness Consent: Risks, benefits, and alternatives have been discussed and questions answered. Patient agrees to proceed with procedure. 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 Review of Systems Review of Systems: All systems reviewed & are unremarkable except as noted in HPI and below PMFSH Past Medical History Medical History (Updated 11/18/23 @ 08:27 by Sergio Gray MD) BPH (benign prostatic hyperplasia) Environmental allergies Essential (primary) hypertension Gastrointestinal bleeding (~06/2023) GERD without esophagitis History of colon polyps History of gastrointestinal bleeding History of pancreatic cancer (~2014) Melena (~06/2023) OAB (overactive bladder) Prediabetes Vitamin B12 deficiency Vitamin D deficiency Surgical History Surgical History (Updated 11/18/23 @ 08:27 by Sergio Gray MD) H/O vasectomy (~1970) History of cataract surgery (~2021) History of colonoscopy with polypectomy (~2017) Dr Pathak History of pancreatectomy (~2014) 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 Family History Family History Other Family history of malignant neoplasm Hypertension Social History Social History Smoking status: Never smoker Alcohol intake: current Drinks per week: 7 Alcohol use details: 1 beer daily; occasional whiskey Substance use: never Substance use type: does not use Lack of Transportation: No Lack of Food: Never True Current Housing: I Have Housing Concerned About Future Housing: No Difficulty Paying Gas/Electric Bills: No Difficulty Paying for Meds: No Currently Unemployed: No Education: High School Diploma/GED Difficulty w/ Childcare or Family Care: No Living arrangements: with family Additional living arrangements comments: (together for 60 years) Occupation/Education: retired Gender identity (if verbalized by the patient): Male Sexual Orientation (if Verbalized by the Patient): Straight or Heterosexual Spiritual care concerns: No Agree to blood products: Yes Meds Home Medications and Allergies Home Medications Medication Instructions Recorded Confirmed Type cholecalciferol (vitamin D3) 50 50 mcg PO DAILY 11/08/20 11/18/23 History mcg (2,000 unit) capsule cyanocobalamin (vitamin B-12) 1,000 mcg sublingual DAILY #90 tabs 07/02/22 11/18/23 Rx 1,000 mcg sublingual tablet Claritin 10 mg BYMOUTH DAILY 03/16/23 11/18/23 History metoprolol succinate 25 mg 25 mg PO DAILY #90 tabs 06/17/23 11/18/23 Rx tablet,extended release 24 hr multivitamin (Daily Multi-Vitamin 1 tablet PO DAILY 06/23/23 11/18/23 History tablet) oxybutynin chloride 5 mg tablet 5 mg PO QHS 06/23/23 11/18/23 History pantoprazole 40 mg tablet,delayed 40 mg PO QAM #90 tabs 10/19/23 11/18/23 Rx release [facility] 1 tab-cap PO DAILY 11/09/23 11/18/23 History amlodipine 10 mg tablet 10 mg PO DAILY #90 tabs 11/10/23 11/18/23 Rx tamsulosin 0.4 mg capsule 0.4 mg PO DAILY #90 caps 11/12/23 11/18/23 Rx Allergies Allergy/AdvReac Type Severity Reaction Status Date / Time povidone-iodine Allergy Intermediate Rash Verified 11/18/23 07:40 Vital Signs Vital Signs - 24 hr 11/18/23 07:42 Temperature 97.1 F L Pulse Rate 82 Respiratory Rate 20 Blood Pressure 143/60 H Pulse Oximetry 98 Oxygen Delivery Room Air Exam Const: General: comfortable and no acute distress HENMT: Face/Nose/Sinus: Normal nares present Eyes: General: appearance normal, both eyes and all related structures Neck: Neck: no JVD Resp: Auscultation: clear to auscul
[2023-11-18 08:43] VITALS: BP 125/64; PULSE 68; RESP 20; O2SAT 98
[2023-11-18 08:44] VITALS: BP 111/65; PULSE 68; RESP 20; O2SAT 100
[2023-11-18 08:54] VITALS: BP 124/71; PULSE 62; RESP 20; O2SAT 100
== END 2023-11-18 09:01 | disposition home or self-care (01) ==
PROVIDERS: PCP Family Medicine; Visit Provider Internal Medicine Gastroenterology
PROC: 0DJ08ZZ Inspection of Upper Intestinal Tract, Via Natural or Artificial Opening Endoscopic (ICD-10-PCS; CPT 43235; principal; 2023-11-18 09:00)
DX: Z09 Encounter for follow-up examination after completed treatment for conditions other than malignant neoplasm (principal); Z87.19 Personal history of other diseases of the digestive system; K21.9 Gastro-esophageal reflux disease without esophagitis; I10 Essential (primary) hypertension; N40.0 Benign prostatic hyperplasia without lower urinary tract symptoms; E55.9 Vitamin D deficiency, unspecified; Z90.411 Acquired partial absence of pancreas; Z85.07 Personal history of malignant neoplasm of pancreas; Z93.1 Gastrostomy status
CPT/HCPCS: 43235; J2704; J7120

== ENCOUNTER 2024-04-19 09:03 | Outpatient (CLI) | payer MEDICARE, SELFPAY ==
[2024-04-19 13:09] LABS: Basophils Absolute Auto 0.1 K/mm3 (0.0-0.1); Basophils Percent Auto 1.2 % (0.2-1.2); Eosinophils Absolute Auto 0.3 K/mm3 (0-0.3); Eosinophils Percent Auto 3.5 % (0-4.4); Hemoglobin 11.2 g/dL (14.0-18.0); Immature Granulocyte Absolute 0.02 K/mm3 (0.00-0.031); Immature Granulocyte Percent A 0.3 % (0-0.5); Lymphocytes Percent Auto 38.1 % (18.3-44.2); Mean Corpuscular HGB Conc 29.5 g/dl (32-36); Mean Corpuscular Hemoglobin 21.2 pg (26-34); Mean Platelet Volume 10.6 fl (7.4-10.4); Monocytes Absolute Auto 0.8 K/mm3 (0.1-0.6); Neutrophils Absolute Auto 3.5 K/mm3 (1.3-6.7); Neutrophils Percent Auto 45.9 % (45.5-73.1); Platelet Count Result 378 k/mm3 (150-375); Red Blood Count 5.28 M/mm3 (4.6-6.20); Red Cell Distribution Width 21.5 % (11.5-14.5); White Blood Count 7.6 K/mm3 (4.5-10.0)
[2024-04-19 13:41] LABS: Anisocytosis 1+; Microcytosis 1+ (NORMAL); Platelet Estimate Slightly Increased (Adequate); Schistocytes None Seen
[2024-04-19 15:21] LABS: Hemoglobin A1C 6.2 % (<5.7)
[2024-04-19 16:16] LABS: Alanine Aminotransferase 16 U/L (6-50); Albumin Level 4.2 g/dL (3.5-5.1); Alkaline Phosphatase 114 U/L (38-126); Anion Gap 13 mmol/L (4-12); Aspartate Amino Transferase 39 U/L (17-59); Bilirubin,Total 0.4 mg/dL (0.2-1.3); Blood Urea Nitrogen 11 mg/dL (9-20); Calcium 8.8 mg/dL (8.4-10.2); Carbon Dioxide 23 mmol/L (22-30); Chloride 100 mmol/L (98-107); Estimated Glomerular Filt Rate > 60; Glucose 127 mg/dL (65-110); Potassium 4.3 mmol/L (3.4-5.0); Sodium 136 mmol/L (137-145)
[2024-04-19 17:31] LABS: Folic Acid 10.2 ng/mL (2.76->20)
[2024-04-19 19:38] LABS: Iron 29 ug/dL (49-181)
[2024-04-19 19:47] LABS: Percent Iron Saturation 7 % (20-50)
[2024-04-19 20:13] LABS: Ferritin 6.72 ng/mL (11.1-264)
== END 2024-04-19 09:04 | disposition home or self-care (01) ==
PROVIDERS: PCP Family Medicine; Visit Provider Family Medicine
DX: D64.9 Anemia, unspecified (principal); I10 Essential (primary) hypertension; R73.03 Prediabetes
CPT/HCPCS: 36415; 80053; 82607; 82728; 82746; 83036; 83540; 83550; 85025

== ENCOUNTER 2024-07-06 09:05 | Outpatient (CLI) | payer MEDICARE, SELFPAY ==
[2024-07-06 13:45] LABS: Alanine Aminotransferase 31 U/L (6-50); Alkaline Phosphatase 102 U/L (38-126); Anion Gap 9 mmol/L (4-12); Aspartate Amino Transferase 67 U/L (17-59); Bilirubin,Total 0.6 mg/dL (0.2-1.3); Blood Urea Nitrogen 11 mg/dL (9-20); Calcium 9.1 mg/dL (8.4-10.2); Carbon Dioxide 24 mmol/L (22-30); Chloride 103 mmol/L (98-107); Cholesterol 192 mg/dL (0-200); Estimated Glomerular Filt Rate > 60; Glucose 107 mg/dL (65-110); HDL Direct 69 mg/dL; Sodium 136 mmol/L (137-145); Triglycerides 154 mg/dL (<150)
[2024-07-06 13:49] LABS: Basophils Absolute Auto 0.1 K/mm3 (0.0-0.1); Eosinophils Absolute Auto 0.1 K/mm3 (0-0.3); Eosinophils Percent Auto 2.2 % (0-4.4); Hematocrit 50.8 % (42.0-52.0); Hemoglobin 15.4 g/dL (14.0-18.0); Immature Granulocyte Absolute 0.01 K/mm3 (0.00-0.031); Immature Granulocyte Percent A 0.2 % (0-0.5); Lymphocytes Absolute Auto 2.31 K/mm3 (0.9-3.2); Lymphocytes Percent Auto 39.9 % (18.3-44.2); Mean Corpuscular HGB Conc 30.3 g/dl (32-36); Mean Platelet Volume 10.9 fl (7.4-10.4); Monocytes Absolute Auto 0.7 K/mm3 (0.1-0.6); Monocytes Percent Auto 12.1 % (2.6-8.5); Neutrophils Absolute Auto 2.6 K/mm3 (1.3-6.7); Neutrophils Percent Auto 44.6 % (45.5-73.1); Nucleated Red Blood Cells Perc 0.3 % (0.0-0.2); Platelet Count Result 192 k/mm3 (150-375); Red Blood Count 5.71 M/mm3 (4.6-6.20); Red Cell Distribution Width 22.5 % (11.5-14.5); White Blood Count 5.8 K/mm3 (4.5-10.0)
[2024-07-06 13:56] LABS: LDL Cholesterol Direct 98 mg/dL
[2024-07-06 14:12] LABS: Prostate Specific Antigen 3.5 ng/mL (< OR = 4.0)
[2024-07-06 14:47] LABS: Folic Acid 18.3 ng/mL (2.76->20)
[2024-07-06 17:24] LABS: Iron 173 ug/dL (49-181)
[2024-07-06 17:34] LABS: Percent Iron Saturation 46 % (20-50)
[2024-07-06 18:15] LABS: Vitamin D 25 Hydroxy 62.5 ng/mL
[2024-07-06 19:31] LABS: Hemoglobin A1C 5.3 % (<5.7)
== END 2024-07-06 09:06 | disposition home or self-care (01) ==
LOC: ANHGOSHLAB 09:06
PROVIDERS: PCP Family Medicine; Visit Provider Family Medicine
DX: Z12.5 Encounter for screening for malignant neoplasm of prostate (principal); E78.5 Hyperlipidemia, unspecified; I10 Essential (primary) hypertension; D64.9 Anemia, unspecified; R73.03 Prediabetes; E55.9 Vitamin D deficiency, unspecified
CPT/HCPCS: 36415; 80053; 80061; 82306; 82607; 82728; 82746; 83036; 83540; 83550; 84153; 84443; 85025; G0103

== ENCOUNTER 2024-09-04 03:27 | Observation (INO) | payer MEDICARE, SELFPAY ==
[2024-09-04] VITALS (20 sets, daily range): BP systolic 130–175; BP diastolic 56–88; PULSE 76–98; RESP 15–22; TEMP 36.4–36.7; O2SAT 94–100; BMI 28.0
--- NOTE | ~2024-09-04 | NM_ITS ---
EXAMINATION: NM dena stress w perfusion DATE: 09/05/2024 10:39 INDICATION: Chest pain. TECHNIQUE: Rest images were obtained following intravenous administration of 11.6 mCi Tc99m tetrofosm in (Myoview). The patient was infused intravenously with Lexiscan (regadenoson). Then, 34.5 mCi Tc99m tetrofosmin (Myoview) was administered intravenously, and stress images were obtained. Data was niya nstructed into short axis and horizontal and vertical long axis SPECT images. Gated SPECT images were also obtained. COMPARISON: None. FINDINGS: There is no definite reversible or fixed perfusion abnormality to suggest ischemia or infar ction. There is no segmental wall motion abnormality. Left ventricular ejection fraction measures > 70%. IMPRESSION: 1. No definite ischemia or infarct. 2. Normal left ventricular ejection fraction measuring >70%. Reviewed, dictated and finalized at location A. [employer]
--- NOTE | ~2024-09-04 | US_ITS ---
BILATERAL LOWER EXTREMITY VENOUS ULTRASOUND Ordering provider: Jaz Jean PA-C History: . lower extremity edema, elevated D-dimer . Comparison: None. FINDINGS: RIGHT LOWER EXTREMITY VEINS: --COMMON FEMORAL: Patent and free of thrombus. Normal compressibility, phasic flow and augmentation. --PROXIMAL SUPERFICIAL FEMORAL: Patent and free of thrombus. Normal compressibility, phasic flow and augmentation. --DISTAL SUPERFICIAL FEMORAL: Patent and free of thrombus. Normal compressibility, phasic flow and au gmentation. --POPLITEAL: Patent and free of thrombus. Normal compressibility, phasic flow and augmentation. --POSTERIOR TIBIAL: Patent and free of thrombus. Normal compressibility, phasic flow and augmentation . LEFT LOWER EXTREMITY VEINS: --COMMON FEMORAL: Patent and free of thrombus. Normal compressibility, phasic flow and augmentation. --PROXIMAL SUPERFICIAL FEMORAL: Patent and free of thrombus. Normal compressibility, phasic flow and augmentation. --DISTAL SUPERFICIAL FEMORAL: Patent and free of thrombus. Normal compressibility, phasic flow and au gmentation. --POPLITEAL: Patent and free of thrombus. Normal compressibility, phasic flow and augmentation. --POSTERIOR TIBIAL: Patent and free of thrombus. Normal compressibility, phasic flow and augmentation . IMPRESSION: Negative bilateral lower extremity venous US. No deep vein thrombosis. Reviewed, dictated and finalized at location A. R SALES CONSULTANT
--- NOTE | ~2024-09-04 | XR_ITS ---
XR chest 2V DATE: 09/04/2024 04:49 INDICATION: Chest pain TECHNIQUE: PA and lateral views COMPARISON: 11/18/2014 portable AP chest FINDINGS: Normal heart size. Aortic arch calcification. No hilar or mediastinal enlargement. There is chronic mild discoid scarring and suggestion of minimal infiltrate or atelectasis in the lef t lower lobe. The lungs otherwise are clear. No pleural effusion or pulmonary vascular congestion or pneumothorax. Degenerative spurring of the thoracic and lumbar spine. IMPRESSION: Mild chronic discoid scarring and suggestion of minimal infiltrate or atelectasis in the left lower lobe Reviewed, dictated and finalized at location A. TAL [employer]ING [employer] PLAT[employer]AKER
--- NOTE | 2024-09-04 03:28 | ECG_ITS ---
Test Date: 2024-09-04 03:35:33 Measurements Intervals [place] Rate: 91 P: 18 VT: 191 QRS: -63 QRSD: 84 T: 62 QT: 352 QTc: 433 Interpretive Statements SINUS RHYTHM LEFT ANTERIOR FASCICULAR BLOCK [QRS AXIS <= -45, QR IN I, RS IN II] MINIMAL VOLTAGE CRITERIA FOR LVH, CONSIDER NORMAL VARIANT [MEETS CRITERIA IN ONE OF: R(aVL), S(V1), R(V5), R(V5/V6)+S(V1)] SEPTAL MYOCARDIAL INFARCTION , PROBABLY OLD [40+ ms Q WAVE IN V1/V2] ABNORMAL ECG No previous ECG available for comparison Electronically Signed On 09-04-2024 08:32:30 [employer] by Kevin Bazzi M.D.
[2024-09-04 03:47] LABS: Basophils Absolute Auto 0.1 K/mm3 (0.0-0.1); Basophils Percent Auto 0.6 % (0.2-1.2); Eosinophils Percent Auto 0.3 % (0-4.4); Hematocrit 47.8 % (42.0-52.0); Hemoglobin 16.1 g/dL (14.0-18.0); Immature Granulocyte Absolute 0.04 K/mm3 (0.00-0.031); Immature Granulocyte Percent A 0.3 % (0-0.5); Lymphocytes Absolute Auto 1.65 K/mm3 (0.9-3.2); Lymphocytes Percent Auto 13.2 % (18.3-44.2); Mean Corpuscular HGB Conc 33.7 g/dl (32-36); Mean Corpuscular Hemoglobin 28.6 pg (26-34); Mean Corpuscular Volume 84.9 fl (80-100); Mean Platelet Volume 9.4 fl (7.4-10.4); Monocytes Absolute Auto 0.9 K/mm3 (0.1-0.6); Monocytes Percent Auto 6.8 % (2.6-8.5); Neutrophils Absolute Auto 9.8 K/mm3 (1.3-6.7); Neutrophils Percent Auto 78.8 % (45.5-73.1); Platelet Count Result 199 k/mm3 (150-375); Red Blood Count 5.63 M/mm3 (4.6-6.20); Red Cell Distribution Width 15.4 % (11.5-14.5); White Blood Count 12.5 K/mm3 (4.5-10.0)
[2024-09-04 03:58] LABS: INR 0.9; Prothrombin Time 12.5 Seconds (11.1-14.7)
[2024-09-04 04:03] LABS: Alanine Aminotransferase 27 U/L (6-50); Alkaline Phosphatase 139 U/L (38-126); Anion Gap 10 mmol/L (4-12); Aspartate Amino Transferase 29 U/L (17-59); Bilirubin,Total 0.9 mg/dL (0.2-1.3); Blood Urea Nitrogen 11 mg/dL (9-20); Calcium 8.6 mg/dL (8.4-10.2); Carbon Dioxide 22 mmol/L (22-30); Chloride 102 mmol/L (98-107); Estimated CRCL calculation 82 ml/min; Estimated Glomerular Filt Rate > 60; Glucose 134 mg/dL (65-110); Lipase 58 U/L (23-300); Potassium 3.5 mmol/L (3.4-5.0); Sodium 134 mmol/L (137-145)
[2024-09-04 04:13] LABS: Troponin I < 0.012 ng/mL (0.000-0.034)
--- NOTE | 2024-09-04 08:26 | ECG_ITS ---
Test Date: 2024-09-04 08:34:43 Measurements Intervals [place] Rate: 86 P: 13 LA: 183 QRS: -55 QRSD: 90 T: 53 QT: 362 QTc: 433 Interpretive Statements SINUS RHYTHM LEFT ANTERIOR FASCICULAR BLOCK [QRS AXIS <= -45, QR IN I, RS IN II] SEPTAL MYOCARDIAL INFARCTION , OF INDETERMINATE AGE [40+ ms Q WAVE IN V1/V2] ABNORMAL ECG Compared to ECG 09/04/2024 03:35:33 No significant changes Electronically Signed On 09-04-2024 08:42:58 [employer]BMARINE [employer] by Kevin Bazzi M.D.
[2024-09-04 09:07] LABS: Troponin I 0.026 ng/mL (0.000-0.034)
--- NOTE | 2024-09-04 10:47 | ED_ITS ---
HPI - Chest Pain General Chief Complaint: Chest Pain Stated Complaint: Chest pain Time Seen by Provider: 09/04/24 10:44 History of Present Illness HPI narrative: Patient is an 83-year-old male who presents ER with chest pain. Sudden onset last night. Initially on the right side of his chest he is able go back to sleep. He then woke back up again and had pressure over the center of his chest like somebody was pushing on him. He continues to have central chest pressure. Currently 2/10 but at maximum it was 5/10. No history of heart disease. No aggravating nor alleviating factors. He did take some aspirin. Related Data Home Medications ?Medication ?Instructions ?Recorded ?Confirmed ?Last Taken ?Type [facility] 1 tab-cap PO DAILY 11/09/23 06/28/24 11/17/23 History cholecalciferol (vitamin D3) 125 125 mcg PO DAILY 04/12/24 06/28/24 Unknown History mcg (5,000 unit) capsule multivitamin (Daily Multi-Vitamin 1 tablet PO DAILY 06/28/24 06/28/24 Unknown History tablet) oxybutynin chloride 15 mg 15 mg PO DAILY 06/28/24 06/28/24 Unknown History tablet,extended release 24 hr Allergies Allergy/AdvReac Type Severity Reaction Status Date / Time povidone-iodine Allergy Intermediate Rash Verified 09/04/24 03:48 Review of Systems 2 Review of Systems: All systems reviewed & are unremarkable except as noted in HPI and below Constitutional: Constitutional: Reports no additional constitutional complaints ENT: Reports system reviewed and no additional complaints, except as documented Cardiovascular: Cardiovascular: Reports no additional cardiovascular complaints Respiratory: Respiratory: Reports no additional respiratory complaints Gastrointestinal: Gastrointestinal: Reports no additional gastrointestinal complaints [facility] Past Medical History Medical History (Updated 09/04/24 @ 16:02 by Oseas Martel MD) Pancreatic cancer (2014) status post Whipple Colon polyps Benign prostate hyperplasia Overactive bladder Gastrointestinal bleeding (06/2023) due to intestinal ulcers Vitamin D deficiency Vitamin B12 deficiency Prediabetes Environmental allergies Essential (primary) hypertension GERD without esophagitis Surgical History Surgical History (Updated 09/04/24 @ 12:56 by Jaz Jean PA-C) History of vasectomy (1970) History of cataract surgery (2021) History of colonoscopy with polypectomy (2017) History of pancreatectomy (2014) 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 Family History Family History Other Family history of malignant neoplasm Hypertension Social History Social History (Updated 09/04/24 @ 12:57 by Jaz Jean PA-C) Social History: Surrogate medical decision maker: Code status: Smoking status: Never smoker Alcohol intake: current Drinks per week: 7 Alcohol use details: 1 beer daily; occasional whiskey in moderation Substance use: never Substance use type: does not use Lack of Transportation: No Lack of Food: Never True Current Housing: I Have Housing Concerned About Future Housing: No Difficulty Paying Gas/Electric Bills: No Difficulty Paying for Meds: No Currently Unemployed: No Education: High School Diploma/GED Difficulty w/ Childcare or Family Care: No Living arrangements: with family Additional living arrangements comments: (together for 60 years) Occupation/Education: retired Spiritual care concerns: No Agree to blood products: Yes Exam 2 Narrative: GENERAL: Well-appearing, well-nourished, and in no acute distress. HEAD: Normocephalic, atraumatic. ENT: Mucous membranes moist. CHEST: Clear to auscultation. No respiratory distress. HEART: Regular rate and rhythm. Normal peripheral pulses. ABDOMEN: Soft, nontender, nondistended. EXTREMITIES: Normal range of motion. No edema. SKIN: Warm, dry, no rash. NEURO: Alert and oriented x3. PSYCH: Normal mood and affect. Course Course Emergency Course: Patient resting comfortably. Admit to the hospitalist service. Cardiology consulted recommends giving Lovenox this patient is continue have some discomfort. Troponin did trend up. Vital Signs Vital signs: Vital Signs Temperature 97.9 F 09/04/24 03:44 Pulse Rate 91 09/04/24 03:44 Respiratory Rate 18 09/04/24 03:44 Blood Pressure 132/56 L 09/04/24 03:44 Pulse Oximetry 98 09/04/24 03:44 Oxygen Delivery Room Air 09/04/24 03:44 Temperature 97.6 F 09/04/24 08:35 Pulse Rate 76 09/04/24 15:31 Respiratory Rate 18 09/04/24 15:31 Blood Pressure 134/66 09/04/24 15:31 Pulse Oximetry 96 09/04/24 15:31 Oxygen Delivery Room Air 09/04/24 10:50 MDM - Chest Pain Lab Data 09/04/24 03:39 09/04/24 03:39 Labs: Lab Results 09/04/24 09/04/24 Range/Units 03:39 08:34 WBC 12.5 H (4.5-10.0) K/mm3 RBC 5.63 (4.6-6.20) M/mm3 Hgb 16.1 (14.0-18.0) g/dL Hct 47.8 (42.0-52.0) % MCV 84.9 (80-100) fl MCH 28.6 (26-34) pg MCHC 33.7 (32-36) g/dl RDW 15.4 H (11.5-14.5) % Plt Count 199 (150-375) k/mm3 MPV 9.4 (7.4-10.4) fl Immature Gran % (Auto) 0.3 (0-0.5) % Neut % (Auto) 78.8 H (45.5-73.1) % Lymph % (Auto) 13.2 L (18.3-44.2) % [place] % (Auto) 6.8 (2.6-8.5) % Eos % (Auto) 0.3 (0-4.4) % Baso % (Auto) 0.6 (0.2-1.2) % Lymph # (Auto) 1.65 (0.9-3.2) K/mm3 [place] # (Auto) 0.9 H (0.1-0.6) K/mm3 Eos # (Auto) 0.0 (0-0.3) K/mm3 Baso # (Auto) 0.1 (0.0-0.1) K/mm3 Abs Immat Gran (auto) 0.04 H (0.00-0.031) K/mm3 Absolute Neuts (auto) 9.8 H (1.3-6.7) K/mm3 Absolute Nucleated RBC 0.000 (0.0-0.012) K/mm3 Nucleated RBC % 0.0 (0.0-0.2) % PT 12.5 (11.1-14.7) Seconds INR 0.9 APTT 24.0 (22.3-36.8) Seconds Sodium 134 L (137-145) mmol/L Potassium 3.5 (3.4-5.0) mmol/L Chloride 102 (98-107) mmol/L Carbon Dioxide 22 (22-30) mmol/L Anion Gap 10 (4-12) mmol/L BUN 11 (9-20) mg/dL Creatinine 0.70 (0.7-1.3) mg/dL Estim Creat Clear Calc 82 ml/min Estimated GFR > 60 (59 - ) Glucose 134 H (65-110) mg/dL Calcium 8.6 (8.4-10.2) mg/dL Total Bilirubin 0.9 (0.2-1.3) mg/dL AST 29 (17-59) U/L ALT 27 (6-50) U/L Alkaline Phosphatase 139 H (38-126) U/L Troponin I < 0.012 0.026 D (0.000-0.034) ng/mL Total Protein 7.0 (6.3-8.2) g/dL Albumin 4.0 (3.5-5.1) g/dL Lipase 58 (23-300) U/L Imaging Data Radiologist's impression: ITS Impressions Chest X-Ray 09/04/24 07:39 IMPRESSION: Mild chronic discoid scarring and suggestion of minimal infiltrate or atelectasis in the left lower lobe ECG Data EKG #1: ECG completion date: 09/04/24 ECG completion time: 08:34 EKG Interpretation: normal rate (86), sinus rhythm, non-specific ST changes, normal QRS, normal QT and left axis Discharge Plan Discharge Clinical Impression: Chest pain Patient Disposition: Still a Patient Condition: Stable Quality HEART score for chest pain patients History: moderately suspicious ECG: non specific repolarization disturbance/LBTB/PM Age: > or = to 65 years Risk factors: 1 or 2 risk factors Troponin: < or = to 1x normal limit Heart score: 5
[2024-09-04] MEDS: ENOXAPARIN 100 MG/ML SYRINGE SUB-Q (11:15)
--- NOTE | 2024-09-04 11:33 | PM.CNCAR ---
Assessment and Plan Assessment and plan (1) Chest pain: Code(s): R07.9 - Chest pain, unspecified Status: Acute Assessment and Plan: Could be costochondritis or ACS. First 2 sets of troponin negative but trending up to .024. EKG without ST changes. On Lovenox. Aspirin. Await 3rd set, if negative, will stop Lovenox shots and plan for Lexiscan myoview in AM. If positive then plan for LHC. (2) Essential (primary) hypertension: Code(s): I10 - Essential (primary) hypertension Status: Acute Assessment and Plan: Stable. (3) [place] (dyspnea on exertion): Code(s): R06.09 - Other forms of dyspnea Status: Acute Assessment and Plan: Obtain echo. History of Present Illness History of Present Illness Consult date/time: 09/04/24 11:33 Reason For Visit: Chest pain Narrative: 83 yr old man presents to ER with chest pain. His PCP is Dr. Vasquez. He has a history of hypertension. His son is at bedside. Reports last night he had right side breast pain, he went to bed and woke up with mid substernal chest pain that is sharp 5/10 and now it is 2/10 and associated with sob. He normally can walk up to 1 block and limited by [place] and joint pains. Denies orthopnea, PND, edema, dizziness, palpitations. Review of Systems Review of Systems: All systems reviewed & are unremarkable except as noted in HPI and below Constitutional: Constitutional: Reports as per HPI, Denies chills and Denies fever(s) Cardiovascular: Cardiovascular: Reports as per HPI and Reports chest pain Respiratory: Respiratory: Reports as per HPI and Reports dyspnea Gastrointestinal: Gastrointestinal: Reports as per HPI and Denies abdominal pain Genitourinary: Genitourinary: Reports as per HPI and Denies dysuria Musculoskeletal: Musculoskeletal: Reports as per HPI and Reports arthralgias Neurologic: Reports as per HPI, Denies dizziness and Denies syncope [facility] Past Medical History Medical History BPH (benign prostatic hyperplasia) Environmental allergies Essential (primary) hypertension Gastrointestinal bleeding (~06/2023) GERD without esophagitis History of colon polyps History of gastrointestinal bleeding History of pancreatic cancer (~2014) Melena (~06/2023) OAB (overactive bladder) Prediabetes Vitamin B12 deficiency Vitamin D deficiency Surgical History Surgical History H/O vasectomy (~1970) History of cataract surgery (~2021) History of colonoscopy with polypectomy (~2017) Dr Pathak History of pancreatectomy (~2014) 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 Family History Family History Other Family history of malignant neoplasm Hypertension Social History Social History Smoking status: Never smoker Alcohol intake: current Drinks per week: 7 Alcohol use details: 1 beer daily; occasional whiskey Substance use: never Substance use type: does not use Lack of Transportation: No Lack of Food: Never True Current Housing: I Have Housing Concerned About Future Housing: No Difficulty Paying Gas/Electric Bills: No Difficulty Paying for Meds: No Currently Unemployed: No Education: High School Diploma/GED Difficulty w/ Childcare or Family Care: No Living arrangements: with family Additional living arrangements comments: (together for 60 years) Occupation/Education: retired Gender identity (if verbalized by the patient): Male Sexual Orientation (if Verbalized by the Patient): Straight or Heterosexual Spiritual care concerns: No Agree to blood products: Yes Meds Home Medications and Allergies Home Medications ?Medication ?Instructions ?Recorded ?Confirmed ?Type cyanocobalamin (vitamin B-12) 1,000 mcg sublingual DAILY #90 tabs 07/02/22 06/28/24 Rx 1,000 mcg sublingual tablet [facility] 1 tab-cap PO DAILY 11/09/23 06/28/24 History cholecalciferol (vitamin D3) 125 125 mcg PO DAILY 04/12/24 06/28/24 History mcg (5,000 unit) capsule pantoprazole 20 mg tablet,delayed 20 mg PO QAM #100 tabs 04/12/24 06/28/24 Rx release ferrous sulfate 325 mg (65 mg 325 mg PO BID #180 tabs 04/26/24 06/28/24 Rx iron) tablet tamsulosin 0.4 mg capsule 0.4 mg PO DAILY #90 caps 05/06/24 06/28/24 Rx metoprolol succinate 25 mg 25 mg PO DAILY #90 tabs 06/13/24 06/28/24 Rx tablet,extended release 24 hr multivitamin (Daily Multi-Vitamin 1 tablet PO DAILY 06/28/24 06/28/24 History tablet) oxybutynin chloride 15 mg 15 mg PO DAILY 06/28/24 06/28/24 History tablet,extended release 24 hr amlodipine 10 mg tablet 10 mg PO DAILY #90 tabs 08/04/24 Rx Allergies Allergy/AdvReac Type Severity Reaction Status Date / Time povidone-iodine Allergy Intermediate Rash Verified 09/04/24 03:48 Vital Signs Vital Signs - 24 hr 09/04/24 03:44 09/04/24 08:35 09/04/24 10:45 Temperature 97.9 F 97.6 F Pulse Rate 91 88 82 Respiratory Rate 18 16 16 Blood Pressure 132/56 L 154/84 H 148/77 H Pulse Oximetry 98 97 96 Oxygen Delivery Room Air 09/04/24 10:50 Temperature Pulse Rate Respiratory Rate Blood Pressure Pulse Oximetry Oxygen Delivery Room Air Exam Const: General: cooperative, healthy appearing and comfortable Resp: Auscultation: clear to auscultation bilaterally, no crackles, no rales, no rhonchi and no wheezes Cardio: Rate: regular rate Rhythm: regular rhythm Heart sounds: no murmurs Peripheral pulses: dorsalis pedis present GI: GI Palp: No abdominal tenderness and Yes Soft to palpation Neuro: General: oriented to person, oriented to place and oriented to time Extrem: Right lower extremity: no edema Left lower extremity: no edema Results Labs and Meds 09/04/24 03:39 09/04/24 03:39 Lab results: Cardiac Enzymes 09/04/24 09/04/24 Range/Units 03:39 08:34 AST 29 (17-59) U/L Troponin I < 0.012 0.026 D (0.000-0.034) ng/mL Coagulation 09/04/24 Range/Units 03:39 PT 12.5 (11.1-14.7) Seconds APTT 24.0 (22.3-36.8) Seconds CBC 09/04/24 Range/Units 03:39 WBC 12.5 H (4.5-10.0) K/mm3 RBC 5.63 (4.6-6.20) M/mm3 Hgb 16.1 (14.0-18.0) g/dL Hct 47.8 (42.0-52.0) % Plt Count 199 (150-375) k/mm3 Lymph # (Auto) 1.65 (0.9-3.2) K/mm3 [place] # (Auto) 0.9 H (0.1-0.6) K/mm3 Eos # (Auto) 0.0 (0-0.3) K/mm3 Baso # (Auto) 0.1 (0.0-0.1) K/mm3 Comprehensive Metabolic Panel 09/04/24 Range/Units 03:39 Sodium 134 L (137-145) mmol/L Potassium 3.5 (3.4-5.0) mmol/L Chloride 102 (98-107) mmol/L Carbon Dioxide 22 (22-30) mmol/L BUN 11 (9-20) mg/dL Creatinine 0.70 (0.7-1.3) mg/dL Glucose 134 H (65-110) mg/dL Calcium 8.6 (8.4-10.2) mg/dL AST 29 (17-59) U/L ALT 27 (6-50) U/L Alkaline Phosphatase 139 H (38-126) U/L Total Protein 7.0 (6.3-8.2) g/dL Albumin 4.0 (3.5-5.1) g/dL Patient Weight 09/04/24 23:59 Weight 100.9 kg
--- NOTE | 2024-09-04 12:12 | ECG_ITS ---
Test Date: 2024-09-04 19:50:59 Measurements Intervals [place] Rate: 86 P: 24 IN: 200 QRS: -60 QRSD: 90 T: 59 QT: 358 QTc: 430 Interpretive Statements SINUS RHYTHM LEFT ANTERIOR FASCICULAR BLOCK [QRS AXIS <= -45, QR IN I, RS IN II] Compared to ECG 09/04/2024 08:34:43 Myocardial infarct finding no longer present Electronically Signed On 09-05-2024 21:55:08 FISH ICER by Baljinder Freed M.D.
[2024-09-04 12:41] LABS: Troponin I < 0.012 ng/mL (0.000-0.034)
--- NOTE | 2024-09-04 12:50 | PM.IMHP ---
H&P: HPI History of Present Illness Date/Time: 09/04/24 12:50 Chief Complaint: Chest pain. Narrative: This is an 83-year-old male with history of hypertension, prediabetes, pancreatic cancer status post Whipple procedure in 2014, GI bleed due to intestinal ulcers in June 2023, gastroesophageal reflux disease, and benign prostatic hyperplasia who presented to the emergency department via EMS for evaluation of chest pain. The patient provides the history. He has had cold symptoms the last several days, mainly with sinus congestion and postnasal drip but otherwise went to bed last night in his usual state of health. He was wakened from sleep around midnight with pain in the right breast which has since moved to the substernal region. He describes a sharp and shooting pain though it is not necessarily pleuritic. He felt a little short of breath with that as well but that has since resolved. He denies dizziness, syncope, near syncope, sweats, nausea, vomiting, abdominal pain, bloating, belching, melena, hematochezia, orthopnea, paroxysmal nocturnal dyspnea, and calf pain. He has not had any recent traumas or falls and denies doing any recent heavy lifting. In the ED: Vital signs were stable on arrival. Labs are significant for WBC count of 12.5, sodium 134, glucose 134, troponin < 0.012. EKG showed sinus rhythm without acute ST segment elevations or depressions. He received aspirin 324 mg p.o. enoxaparin 100 mg and he is being admitted in this setting for close monitoring and Cardiology consultation. Review of Systems Review of Systems: 12 systems were reviewed and are negative except for as per HPI. [facility] Past Medical History Medical History Pancreatic cancer (2014) status post Whipple Colon polyps Benign prostate hyperplasia Overactive bladder Gastrointestinal bleeding (06/2023) due to intestinal ulcers Vitamin D deficiency Vitamin B12 deficiency Prediabetes Environmental allergies Essential (primary) hypertension GERD without esophagitis Surgical History Surgical History History of vasectomy (1970) History of cataract surgery (2021) History of colonoscopy with polypectomy (2017) History of pancreatectomy (2014) 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 Family History Family History Other Family history of malignant neoplasm Hypertension Social History Social History (Updated 09/04/24 @ 20:55 by Jaz Jean PA-C) Social History: Surrogate medical decision maker: Thomsa Johnson, jenae. Code status: Full code. Smoking status: Never smoker Alcohol intake: current Drinks per week: 7 Alcohol use details: 1 beer daily; occasional whiskey in moderation Substance use: never Substance use type: does not use Lack of Transportation: No Lack of Food: Never True Current Housing: I Have Housing Concerned About Future Housing: No Difficulty Paying Gas/Electric Bills: No Difficulty Paying for Meds: No Currently Unemployed: No Education: High School Diploma/GED Difficulty w/ Childcare or Family Care: No Living arrangements: with family Additional living arrangements comments: Lives with spouse in [place]. They have been for 62 years. Occupation/Education: retired Spiritual care concerns: No Agree to blood products: Yes Meds Home Medications and Allergies Home Medications ?Medication ?Instructions ?Recorded ?Confirmed ?Type cyanocobalamin (vitamin B-12) 1,000 mcg sublingual DAILY #90 tabs 07/02/22 06/28/24 Rx 1,000 mcg sublingual tablet [facility] 1 tab-cap PO DAILY 11/09/23 06/28/24 History cholecalciferol (vitamin D3) 125 125 mcg PO DAILY 04/12/24 06/28/24 History mcg (5,000 unit) capsule pantoprazole 20 mg tablet,delayed 20 mg PO QAM #100 tabs 04/12/24 06/28/24 Rx release ferrous sulfate 325 mg (65 mg 325 mg PO BID #180 tabs 04/26/24 06/28/24 Rx iron) tablet tamsulosin 0.4 mg capsule 0.4 mg PO DAILY #90 caps 05/06/24 06/28/24 Rx metoprolol succinate 25 mg 25 mg PO DAILY #90 tabs 06/13/24 06/28/24 Rx tablet,extended release 24 hr multivitamin (Daily Multi-Vitamin 1 tablet PO DAILY 06/28/24 06/28/24 History tablet) oxybutynin chloride 15 mg 15 mg PO DAILY 06/28/24 06/28/24 History tablet,extended release 24 hr amlodipine 10 mg tablet 10 mg PO DAILY #90 tabs 08/04/24 Rx Allergies Allergy/AdvReac Type Severity Reaction Status Date / Time povidone-iodine Allergy Intermediate Rash Verified 09/04/24 03:48 Vital Signs Vital Signs - 24 hr 09/04/24 03:44 09/04/24 08:35 09/04/24 10:45 Temperature 97.9 F 97.6 F Pulse Rate 91 88 82 Respiratory Rate 18 16 16 Blood Pressure 132/56 L 154/84 H 148/77 H Pulse Oximetry 98 97 96 Oxygen Delivery Room Air 09/04/24 10:50 Temperature Pulse Rate Respiratory Rate Blood Pressure Pulse Oximetry Oxygen Delivery Room Air Exam Narrative: General: Well-developed, nontoxic-appearing gentleman the semi-Perez position in bed. Weight: 100.9 kg. BMI: 28.6. HEENT: PERRL, EOMI. Sclera anicteric. Oral mucosa moist. Oropharynx clear. Neck: Supple. Respiratory: Lungs are clear to auscultation bilaterally. Cardiovascular: Regular rate and rhythm with S1-S2. Chest: No tenderness to palpation over the chest wall. Gastrointestinal: Abdomen is soft, nontender, and nondistended with positive bowel sounds. Skin: Warm and dry. No rash or lesions on limited exam. Extremities: No cyanosis or clubbing. Trace milo ankle edema bilaterally. No palpable knots or cords. Negative Lilly sign bilaterally. Radial and pedal pulses intact. Neurological: Alert. Cranial nerves 2-12 are grossly intact. No gross focal deficits to casual conversation. Psychiatric: Pleasant and cooperative with normal mood and affect. Judgment and insight intact. H&P: Results Labs Labs: Short CBC 09/04/24 Range/Units 03:39 WBC 12.5 H (4.5-10.0) K/mm3 Hgb 16.1 (14.0-18.0) g/dL Hct 47.8 (42.0-52.0) % Plt Count 199 (150-375) k/mm3 BMP 09/04/24 03:39 Sodium 134 L Potassium 3.5 Chloride 102 Carbon Dioxide 22 BUN 11 Creatinine 0.70 Glucose 134 H Calcium 8.6 Cardiac Enzymes 09/04/24 09/04/24 09/04/24 Range/Units 03:39 08:34 12:09 Troponin I < 0.012 0.026 D < 0.012 D (0.000-0.034) ng/mL Liver Function 09/04/24 Range/Units 03:39 Total Bilirubin 0.9 (0.2-1.3) mg/dL AST 29 (17-59) U/L ALT 27 (6-50) U/L Alkaline Phosphatase 139 H (38-126) U/L Albumin 4.0 (3.5-5.1) g/dL Impressions Chest X-Ray 09/04/24 07:39 IMPRESSION: Mild chronic discoid scarring and suggestion of minimal infiltrate or atelectasis in the left lower lobe. Assessment and Plan Assessment and plan (1) Chest pain: Code(s): R07.9 - Chest pain, unspecified Status: Acute (2) Essential (primary) hypertension: Code(s): I10 - Essential (primary) hypertension Status: Acute (3) Prediabetes: Code(s): R73.03 - Prediabetes Status: Acute Plan The patient presented to the emergency department chest pain as detailed in the HPI. Labs, imaging, EKG, and all reports were personally reviewed. The history he gives is somewhat atypical for cardiac pain. May be costochondritis. It does not seem to be musculoskeletal as there is no reproducible pain on palpation of the chest wall. He has a history of GERD and ulcers however his abdominal exam is benign and his history is not suggestive of that. PE is considered less likely by history however d-dimer is minimally elevated when adjusted for age; for now will check lower extremity venous Doppler ultrasounds to rule out DVT to avoid contrast in case he is referred for heart catheterization. Initial 2 troponins were within normal limits and his EKG does not show any acute ST segment changes. He received aspirin 324 mg and enoxaparin 1 mg/kg. Echocardiogram has been ordered. Cardiology consulted for further recommendations. Blood pressures were reviewed and they are stable. Hemoglobin A1c done about 6 weeks ago was 5.3% with a random glucose today 34. His home medications will be reviewed and resumed as appropriate. Findings and treatment plan were discussed with the patient. Questions were solicited and answered to satisfaction. The patient's medical management will be taken over by the hospitalist team in a.m. Quality VTE Prophylaxis VTE prophylaxis: pharmacologic ordered The patient has been admitted under observation status. Hospitalist [facility] Advance Care Plan I have confirmed that the patient's Advanced Care Plan is present, code status is documented, or surrogate decision maker is listed in patient medical record.: Yes Medication Reconciliation I have utilized all available resources to obtain, update and review the patients current medications (includes all prescriptions, OTC, herbals, cannabis, and nutritional supplements).: Yes
--- NOTE | 2024-09-04 13:41 | PC.NURSE ---
tray order with dietary at 2204
[2024-09-04 19:55] LABS: D Dimer 0.84 ug/mL (<0.48)
[2024-09-04 20:17] LABS: Influenza A QL RT-PCR Negative (Negative); Influenza B QL RT-PCR Negative (Negative); SARS-CoV-2 RNA PCR Negative (Negative)
--- NOTE | 2024-09-04 21:18 | ADMGEN ---
This patient, Pradeep Johnson, was admitted to IMU Room 200-01. Patient/family oriented to hospital policies and general routines including ID bracelet, bed and alarms, visiting hours, pain management, procedures, bathroom and other care routines, personal items, smoking policy, room service/diet, and visiting hours. Information on how to activate the Rapid Response Team has been discussed. Patient/Family are encouraged to report perceived risks to care and to ask questions if they do not understand what they are told or what they should do.
[2024-09-04] MEDS: amLODIPine BESYLATE 5 MG TABLET PO (22:54)
[2024-09-05] VITALS (11 sets, daily range): BP systolic 127–139; BP diastolic 59–68; PULSE 71–100; RESP 16–18; TEMP 36.6; O2SAT 95–98
--- NOTE | 2024-09-05 | ECHO_ITS ---
Patient Info Name: Pradeep Johnson Age: 83 years : 1940 Gender: Male Ht: 74 in Wt: 222 lbs BSA: 2.31 m2 HR: 76 bpm BP: 127 / 59 mmHg Technical Quality: Fair Exam Date: 09/05/2024 2:00 PM Exam Location: Echo Lab Patient Status: Outpatient Admit Date: 09/04/2024 Staff Ordering Physician: Oj Mahoney DO Seafood Packer: Trav Lucia RDCS Attending Provider: Abdirashid Villeda MD Referring Physician: Denzel MOSQUEDA; Exam Type: CA echo doppler color flow Study Info Indications - CP Complete two-dimensional, color flow and Doppler transthoracic echocardiogram is performed. Summary 1. Complete two-dimensional, color flow and Doppler transthoracic echocardiogram is performed. 2. Left ventricular chamber dimension is normal. 3. Left ventricular systolic function is normal, estimated at 65-70%. 4. The left ventricular diastolic function is grade I diastolic dysfunction. 5. E/e' 12 is mildly elevated. 6. Left atrial chamber dimension is mildly enlarged. 7. Right atrial chamber dimension is mildly enlarged. 8. The mitral valve has moderately calcified leaflets and moderately calcified annulus. Left Ventricle E/e' 12 is mildly elevated. Left ventricular chamber dimension is normal. Left ventricular systolic function is normal, estimated at 65-70%. The left ventricular diastolic function is grade I diastolic dysfunction. Right Ventricle Right ventricular systolic function is normal and with normal TAPSE 2.3 cm. Right ventricular chamber dimension is normal. Left Atria Left atrial chamber dimension is mildly enlarged. Right Atria Right atrial chamber dimension is mildly enlarged. Aortic Valve The aortic valve is trileaflet. There is no aortic valve stenosis. There is no aortic valve regurgitation. Pulmonic Valve There is no pulmonic regurgitation. Mitral Valve The mitral valve has moderately calcified leaflets and moderately calcified annulus. There is no mitral valve stenosis. There is no mitral valve regurgitation. Tricuspid Valve There is no tricuspid valve regurgitation. Pericardium/Pleural There is no pericardial effusion. Inferior Vena Cava Normal inferior vena cava with >50% collapse upon inspiration consistent with normal right atrial pressure, 5 mmHg. Aorta The aortic root size at the sinus of Valsalva is normal. Left Ventricular Outflow Tract Name Value Normal LVOT 2D LVOT Diameter 2.2 cm LVOT Doppler LVOT Peak Gradient 5 mmHg LVOT Mean Gradient 3 mmHg LVOT VTI 25 cm LVOT VTI/AV VTI Ratio 0.6 LVOT Stroke Volume 91 ml LVOT CO 8.6 l/min LVOT CI 3.7 l/min/m2 Pulmonic Valve Name Value Normal RVOT Doppler RVOT Peak Gradient 2 mmHg PV Doppler PV Peak Gradient 5 mmHg Mitral Valve Name Value Normal MV Doppler MV Decel Calvert 509 cm/s2 MV PHT 51 ms MV Area (PHT) 4.3 cm2 4.0-5.0 MV Diastolic Function MV E Peak Velocity 90 cm/s MV A Peak Velocity 121 cm/s MV E/A 0.7 MV Decel Time 176 ms MV Annular TDI MV E/e' (Septal) 12.7 <=8.0 MV E/e' (Lateral) 12.9 <=8.0 MV E/e' (Average) 12.8 Tricuspid Valve Name Value Normal Estimated PAP/RSVP RA Pressure 5 mmHg <=5 Aorta Name Value Normal Ascending Aorta Ao Root Diameter (MM) 3.5 cm Ao Root Diam Index (MM) 1.5 cm/m2 Aortic Valve Name Value Normal AV Doppler AV Peak Velocity 178 cm/s AV Peak Gradient 11 mmHg AV Mean Gradient 6 mmHg AV VTI 39 cm AV Area (Cont Eq VTI) 2.4 cm2 >=3.0 AV Area (Cont Eq Filemon) 2.3 cm2 AV Regurgitation 2D LVOT Area 3.6 cm2 Ventricles Name Value Normal LV Dimensions 2D/MM IVS Diastolic Thickness (2D) 1.5 cm 0.6-1.0 LVID Diastole (2D) 4.6 cm 4.2-5.8 LVIW Diastolic Thickness (2D) 1.5 cm 0.6-1.0 LVID Systole (2D) 2.9 cm 2.5-4.0 LVOT Diameter 2.2 cm LV Mass (2D Cubed) 284.58 g 88.00-224.00 LV Mass Index (2D Cubed) 123 g/m2 49-115 Relative Wall Thickness (2D) 0.66 LV Fractional Shortening/Ejection Fraction 2D/MM LV Fractional Shortening (2D) 36 % 25-43 LV EF (2D Teicholz) 66 % 52-72 LV Diastolic Volume (4C MOD) 126 ml LV EF (4C MOD) 86 % LV Diastolic Volume (2C MOD) 98 ml LV EF (2C MOD) 64 % LV Diastolic Volume (BP MOD) 115 ml 62-150 LV Diastolic Volume Index (BP MOD) 50 ml/m2 34-74 LV Systolic Volume (BP MOD) 24 ml 21-61 LV Systolic Volume Index (BP MOD) 11 ml/m2 11-31 LV EF (BP MOD) 79 % 52-72 LV Diastolic Length (4C) 8.1 cm LV Systolic Length (4C) 6.4 cm LV Stroke Volume (4C MOD) 108 ml Atria Name Value Normal LA Dimensions LA Dimension (MM) 3.8 cm 3.0-4.1 LA Volume (4C A-L) 80 ml LA Volume (BP A-L) 84 ml RA Dimensions RA Area (4C) 23.4 cm2 <=18.0 Report Signatures
--- NOTE | 2024-09-05 00:16 | ECG_ITS ---
Test Date: 2024-09-05 00:27:36 Measurements Intervals [place] Rate: 96 P: 0 CA: 0 QRS: -59 QRSD: 94 T: 43 QT: 335 QTc: 425 Interpretive Statements ATRIAL FIBRILLATION MARKED LEFT AXIS DEVIATION [QRS AXIS < -30] Compared to ECG 09/04/2024 19:50:59 Left-axis deviation now present Sinus rhythm no longer present Left anterior fascicular block no longer present Electronically Signed On 09-05-2024 21:54:48 UTILITY DRIVER by Baljinder Freed M.D.
[2024-09-05] MEDS: dilTIAZem HCL 30 MG TABLET PO (00:53)
[2024-09-05 04:52] LABS: Basophils Absolute Auto 0.1 K/mm3 (0.0-0.1); Basophils Percent Auto 0.7 % (0.2-1.2); Eosinophils Percent Auto 0.5 % (0-4.4); Hematocrit 42.4 % (42.0-52.0); Hemoglobin 13.9 g/dL (14.0-18.0); Immature Granulocyte Absolute 0.03 K/mm3 (0.00-0.031); Immature Granulocyte Percent A 0.4 % (0-0.5); Lymphocytes Absolute Auto 1.96 K/mm3 (0.9-3.2); Lymphocytes Percent Auto 26.9 % (18.3-44.2); Mean Corpuscular HGB Conc 32.8 g/dl (32-36); Mean Corpuscular Hemoglobin 28.1 pg (26-34); Mean Corpuscular Volume 85.8 fl (80-100); Monocytes Absolute Auto 0.8 K/mm3 (0.1-0.6); Monocytes Percent Auto 11.4 % (2.6-8.5); Neutrophils Absolute Auto 4.4 K/mm3 (1.3-6.7); Neutrophils Percent Auto 60.1 % (45.5-73.1); Platelet Count Result 191 k/mm3 (150-375); Red Blood Count 4.94 M/mm3 (4.6-6.20); Red Cell Distribution Width 15.6 % (11.5-14.5); White Blood Count 7.3 K/mm3 (4.5-10.0)
[2024-09-05 05:09] LABS: Anion Gap 5 mmol/L (4-12); Blood Urea Nitrogen 10 mg/dL (9-20); Calcium 8.2 mg/dL (8.4-10.2); Carbon Dioxide 23 mmol/L (22-30); Chloride 104 mmol/L (98-107); Cholesterol 146 mg/dL (0-200); Estimated CRCL calculation 101 ml/min; Estimated Glomerular Filt Rate > 60; Glucose 109 mg/dL (65-110); HDL Direct 70 mg/dL; Magnesium 1.9 mg/dL (1.6-2.3); Potassium 3.6 mmol/L (3.4-5.0); Sodium 132 mmol/L (137-145); Triglycerides 94 mg/dL (<150)
[2024-09-05 05:20] LABS: LDL Cholesterol Direct 59 mg/dL
--- NOTE | 2024-09-05 07:11 | PM.IMPN ---
Progress Note: A&P Assessment and Plan (1) Chest pain: Code(s): R07.9 - Chest pain, unspecified Status: Acute (2) Essential (primary) hypertension: Code(s): I10 - Essential (primary) hypertension Status: Acute (3) Prediabetes: Code(s): R73.03 - Prediabetes Status: Acute Plan The patient presented to the emergency department chest pain as detailed in the HPI. Labs, imaging, EKG, and all reports were personally reviewed. The history he gives is somewhat atypical for cardiac pain. May be costochondritis. It does not seem to be musculoskeletal as there is no reproducible pain on palpation of the chest wall. He has a history of GERD and ulcers however his abdominal exam is benign and his history is not suggestive of that. PE is considered less likely by history however d-dimer is minimally elevated when adjusted for age; for now will check lower extremity venous Doppler ultrasounds to rule out DVT to avoid contrast in case he is referred for heart catheterization. Initial 2 troponins were within normal limits and his EKG does not show any acute ST segment changes. He received aspirin 324 mg and enoxaparin 1 mg/kg. Echocardiogram has been ordered. Cardiology consulted for further recommendations. Blood pressures were reviewed and they are stable. Hemoglobin A1c done about 6 weeks ago was 5.3% with a random glucose today 34. His home medications will be reviewed and resumed as appropriate. Findings and treatment plan were discussed with the patient. Questions were solicited and answered to satisfaction. The patient's medical management will be taken over by the hospitalist team in a.m. Subjective Date/time seen: 09/05/24 07:11 Interval history: 83-year-old male with history of hypertension, prediabetes, pancreatic cancer status post Whipple procedure in 2014, GI bleed due to intestinal ulcers in June 2023, gastroesophageal reflux disease, and benign prostatic hyperplasia who presented to the emergency department via EMS for evaluation of chest pain. Initial 2 troponins were within normal limits and his EKG does not show any acute ST segment changes. He received aspirin 324 mg and enoxaparin 1 mg/kg. Echocardiogram has been ordered. Cardiology consulted for further recommendations. Review of Systems Review of Systems: 12 systems were reviewed and are negative except for as per HPI. Exam Narrative: General: Well-developed, nontoxic-appearing gentleman the semi-Perez position in bed. Weight: 100.9 kg. BMI: 28.6. HEENT: PERRL, EOMI. Sclera anicteric. Oral mucosa moist. Oropharynx clear. Neck: Supple. Respiratory: Lungs are clear to auscultation bilaterally. Cardiovascular: Regular rate and rhythm with S1-S2. Chest: No tenderness to palpation over the chest wall. Gastrointestinal: Abdomen is soft, nontender, and nondistended with positive bowel sounds. Skin: Warm and dry. No rash or lesions on limited exam. Extremities: No cyanosis or clubbing. Trace milo ankle edema bilaterally. No palpable knots or cords. Negative Lilly sign bilaterally. Radial and pedal pulses intact. Neurological: Alert. Cranial nerves 2-12 are grossly intact. No gross focal deficits to casual conversation. Psychiatric: Pleasant and cooperative with normal mood and affect. Judgment and insight intact. Objective Data Vital Signs Vital Signs: Vital Signs - 24 hr 09/04/24 08:35 09/04/24 10:45 09/04/24 10:50 Temperature 97.6 F Pulse Rate 88 82 Respiratory Rate 16 16 Blood Pressure 154/84 H 148/77 H Pulse Oximetry 97 96 Oxygen Delivery Room Air 09/04/24 10:55 09/04/24 12:12 09/04/24 12:31 Temperature Pulse Rate 82 86 83 Respiratory Rate 18 20 15 Blood Pressure 133/67 146/88 H 139/60 Pulse Oximetry 98 95 94 Oxygen Delivery 09/04/24 13:00 09/04/24 14:01 09/04/24 15:31 Temperature Pulse Rate 87 87 76 Respiratory Rate 21 H 18 18 Blood Pressure 139/61 130/79 134/66 Pulse Oximetry 95 96 96 Oxygen Delivery 09/04/24 16:00 09/04/24 17:00 09/04/24 18:00 Temperature Pulse Rate 83 83 80 Respiratory Rate 16 16 16 Blood Pressure 138/74 134/68 148/66 H Pulse Oximetry 97 96 97 Oxygen Delivery 09/04/24 19:00 09/04/24 19:34 09/04/24 19:36 Temperature 97.8 F Pulse Rate 88 88 Respiratory Rate 16 22 H Blood Pressure 149/65 H 149/65 H Pulse Oximetry 96 97 100 Oxygen Delivery Room Air 09/04/24 20:05 09/04/24 20:09 09/04/24 20:30 Temperature 98.1 F Pulse Rate 97 98 Respiratory Rate 16 Blood Pressure 175/65 H Pulse Oximetry 98 Oxygen Delivery Room Air 09/04/24 22:00 09/04/24 23:27 09/04/24 23:57 Temperature 98.0 F Pulse Rate 94 83 Respiratory Rate 18 Blood Pressure 143/69 H Pulse Oximetry 95 95 Oxygen Delivery Room Air 09/05/24 00:00 09/05/24 00:33 09/05/24 02:00 Temperature Pulse Rate 100 100 90 Respiratory Rate Blood Pressure 130/68 Pulse Oximetry Oxygen Delivery 09/05/24 03:55 09/05/24 04:00 09/05/24 04:00 Temperature 97.8 F Pulse Rate 71 82 Respiratory Rate 18 Blood Pressure 127/59 L Pulse Oximetry 95 95 Oxygen Delivery Room Air 09/05/24 06:00 Temperature Pulse Rate 76 Respiratory Rate Blood Pressure Pulse Oximetry Oxygen Delivery Intake/Output Intake/Output: Intake & Output 09/02/24 09/03/24 09/04/24 09/05/24 23:59 23:59 23:59 23:59 Intake Total 250 Balance 250 Meds/Results Medications: Active Medications Generic Name Dose Route Start Last Admin Trade Name Freq PRN Reason Stop Dose Admin Acetaminophen 650 mg 09/04/24 10:59 Acetaminophen 325 Mg Tablet PO Q4H PRN Mild Pain (1-3) or Fever Hydrocodone Bitart/Acetaminophen 1 tab 09/04/24 10:59 Hydrocodone/Acetaminophen (*Crx) 5-325 Mg Tablet PO Q4H PRN Pain Rated 4-6 Amlodipine Besylate 10 mg 09/06/24 09:00 Amlodipine Besylate 10 Mg Tablet PO DAILY [facility] Cyanocobalamin 1,000 mcg 09/05/24 09:00 Cyanocobalamin 1,000 Mcg Tablet BY MOUTH DAILY [facility] Enoxaparin Sodium 40 mg 09/05/24 09:00 Enoxaparin 40 Mg/0.4 Ml Syringe SUB-Q DAILY [facility] Ferrous Sulfate 325 mg 09/05/24 09:00 Ferrous Sulfate [address] PO BID [facility] Metoprolol Succinate 25 mg 09/05/24 09:00 Metoprolol Succinate Ext Rel 25 Mg Tabcr PO DAILY [facility] Multivitamins Therapeutic 1 tablet 09/05/24 09:00 Multivitamins Therapeutic Tab (*Bkc) PO DAILY [facility] Ondansetron HCl 4 mg 09/04/24 10:59 Ondansetron Inj 4 Mg/2 Ml Vial IV PUSH Q4H PRN Nausea Oxybutynin Chloride 15 mg 09/05/24 09:00 Oxybutynin Chloride Xl 5 Mg Tab.Er.24 PO DAILY [facility] Pantoprazole Sodium 20 mg 09/05/24 09:00 Pantoprazole Sod Sesquihydrate 20 Mg Tab PO QAM [facility] Perflutren Lipid Microsphere 0 ml 09/04/24 11:33 Perflutren Lipid Microspheres 1.5 Ml Vial Diluted To 10 Ml Total Volume IV PUSH 09/07/24 11:33 ONCE PRN adequate visualization Protocol Tamsulosin HCl 0.4 mg 09/05/24 09:00 Tamsulosin Hcl 0.4 Mg Capsule PO DAILY [facility] Vitamin D 5,000 units 09/05/24 09:00 Cholecalciferol 5,000 Units Tablet BY MOUTH DAILY [facility] Radiology Results: ITS Impressions Chest X-Ray 09/04/24 07:39 IMPRESSION: Mild chronic discoid scarring and suggestion of minimal infiltrate or atelectasis in the left lower lobe Labs Labs: Laboratory Results - last 24 hr 09/04/24 09/04/24 09/04/24 08:34 12:09 19:32 WBC RBC Hgb Hct MCV MCH MCHC RDW Plt Count MPV Immature Gran % (Auto) Neut % (Auto) Lymph % (Auto) [place] % (Auto) Eos % (Auto) Baso % (Auto) Lymph # (Auto) [place] # (Auto) Eos # (Auto) Baso # (Auto) Abs Immat Gran (auto) Absolute Neuts (auto) Absolute Nucleated RBC Nucleated RBC % D-Dimer 0.84 H Sodium Potassium Chloride Carbon Dioxide Anion Gap BUN Creatinine Estim Creat Clear Calc Estimated GFR Glucose Calcium Magnesium Troponin I 0.026 D < 0.012 D Triglycerides Cholesterol LDL Cholesterol Direct HDL Direct Influenza A (RT-PCR) Negative Influenza B (RT-PCR) Negative SARS-CoV-2 RNA (RT-PCR) Negative 09/05/24 04:01 WBC 7.3 RBC 4.94 Hgb 13.9 L Hct 42.4 MCV 85.8 MCH 28.1 MCHC 32.8 RDW 15.6 H Plt Count 191 MPV 11.0 H Immature Gran % (Auto) 0.4 Neut % (Auto) 60.1 Lymph % (Auto) 26.9 [place] % (Auto) 11.4 H Eos % (Auto) 0.5 Baso % (Auto) 0.7 Lymph # (Auto) 1.96 [place] # (Auto) 0.8 H Eos # (Auto) 0.0 Baso # (Auto) 0.1 Abs Immat Gran (auto) 0.03 Absolute Neuts (auto) 4.4 Absolute Nucleated RBC 0.000 Nucleated RBC % 0.0 D-Dimer Sodium 132 L Potassium 3.6 Chloride 104 Carbon Dioxide 23 Anion Gap 5 BUN 10 Creatinine 0.56 L Estim Creat Clear Calc 101 Estimated GFR > 60 Glucose 109 Calcium 8.2 L Magnesium 1.9 Troponin I Triglycerides 94 Cholesterol 146 LDL Cholesterol Direct 59 HDL Direct 70 Influenza A (RT-PCR) Influenza B (RT-PCR) SARS-CoV-2 RNA (RT-PCR) Quality VTE Prophylaxis VTE prophylaxis: pharmacologic ordered
--- NOTE | 2024-09-05 07:53 | P.PNCA_ITS ---
Progress Note: A&P Assessment and Plan (1) Chest pain: Code(s): R07.9 - Chest pain, unspecified Status: Acute Assessment and Plan: Could be costochondritis or stable angina. First 3 sets of troponin negative. EKG without ST changes. Stopped therapeutic lovenox. Obtain C3 Jian myoview this AM. If negative, may d/c home from cardiology standpoint. (2) Essential (primary) hypertension: Code(s): I10 - Essential (primary) hypertension Status: Acute Assessment and Plan: Stable. (3) [place] (dyspnea on exertion): Code(s): R06.09 - Other forms of dyspnea Status: Acute Assessment and Plan: Obtain echo today. Subjective Date/time seen: 09/05/24 07:53 Interval history: No longer having chest pain. No sob. Exam Const: General: cooperative, healthy appearing and comfortable Orientation/consciousness: oriented to person, oriented to place and oriented to time Resp: Auscultation: clear to auscultation bilaterally, no crackles, no rales, no rhonchi and no wheezes Cardio: Rate: regular rate Rhythm: regular rhythm Heart sounds: no murmurs Peripheral pulses: dorsalis pedis present Neuro: General: oriented to person, oriented to place and oriented to time Extrem: Right lower extremity: no edema Left lower extremity: no edema Objective Data Vital Signs Vital Signs: Vital Signs - 24 hr 09/04/24 08:35 09/04/24 10:45 09/04/24 10:50 Temperature 97.6 F Pulse Rate 88 82 Respiratory Rate 16 16 Blood Pressure 154/84 H 148/77 H Pulse Oximetry 97 96 Oxygen Delivery Room Air 09/04/24 10:55 09/04/24 12:12 09/04/24 12:31 Temperature Pulse Rate 82 86 83 Respiratory Rate 18 20 15 Blood Pressure 133/67 146/88 H 139/60 Pulse Oximetry 98 95 94 Oxygen Delivery 09/04/24 13:00 09/04/24 14:01 09/04/24 15:31 Temperature Pulse Rate 87 87 76 Respiratory Rate 21 H 18 18 Blood Pressure 139/61 130/79 134/66 Pulse Oximetry 95 96 96 Oxygen Delivery 09/04/24 16:00 09/04/24 17:00 09/04/24 18:00 Temperature Pulse Rate 83 83 80 Respiratory Rate 16 16 16 Blood Pressure 138/74 134/68 148/66 H Pulse Oximetry 97 96 97 Oxygen Delivery 09/04/24 19:00 09/04/24 19:34 09/04/24 19:36 Temperature 97.8 F Pulse Rate 88 88 Respiratory Rate 16 22 H Blood Pressure 149/65 H 149/65 H Pulse Oximetry 96 97 100 Oxygen Delivery Room Air 09/04/24 20:05 09/04/24 20:09 09/04/24 20:30 Temperature 98.1 F Pulse Rate 97 98 Respiratory Rate 16 Blood Pressure 175/65 H Pulse Oximetry 98 Oxygen Delivery Room Air 09/04/24 22:00 09/04/24 23:27 09/04/24 23:57 Temperature 98.0 F Pulse Rate 94 83 Respiratory Rate 18 Blood Pressure 143/69 H Pulse Oximetry 95 95 Oxygen Delivery Room Air 09/05/24 00:00 09/05/24 00:33 09/05/24 02:00 Temperature Pulse Rate 100 100 90 Respiratory Rate Blood Pressure 130/68 Pulse Oximetry Oxygen Delivery 09/05/24 03:55 09/05/24 04:00 09/05/24 04:00 Temperature 97.8 F Pulse Rate 71 82 Respiratory Rate 18 Blood Pressure 127/59 L Pulse Oximetry 95 95 Oxygen Delivery Room Air 09/05/24 06:00 Temperature Pulse Rate 76 Respiratory Rate Blood Pressure Pulse Oximetry Oxygen Delivery Intake/Output Intake/Output: Intake & Output 09/02/24 09/03/24 09/04/24 09/05/24 23:59 23:59 23:59 23:59 Intake Total 250 Balance 250 Meds/Results Medications: Active Medications Generic Name Dose Route Start Last Admin Trade Name Freq PRN Reason Stop Dose Admin Acetaminophen 650 mg 09/04/24 10:59 Acetaminophen 325 Mg Tablet PO Q4H PRN Mild Pain (1-3) or Fever Hydrocodone Bitart/Acetaminophen 1 tab 09/04/24 10:59 Hydrocodone/Acetaminophen (*Crx) 5-325 Mg Tablet PO Q4H PRN Pain Rated 4-6 Amlodipine Besylate 10 mg 09/06/24 09:00 Amlodipine Besylate 10 Mg Tablet PO DAILY [facility] Cyanocobalamin 1,000 mcg 09/05/24 09:00 Cyanocobalamin 1,000 Mcg Tablet BY MOUTH DAILY [facility] Enoxaparin Sodium 40 mg 09/05/24 09:00 Enoxaparin 40 Mg/0.4 Ml Syringe SUB-Q DAILY [facility] Ferrous Sulfate 325 mg 09/05/24 09:00 Ferrous Sulfate [address] PO BID [facility] Metoprolol Succinate 25 mg 09/05/24 09:00 Metoprolol Succinate Ext Rel 25 Mg Tabcr PO DAILY [facility] Multivitamins Therapeutic 1 tablet 09/05/24 09:00 Multivitamins Therapeutic Tab (*Bkc) PO DAILY [facility] Ondansetron HCl 4 mg 09/04/24 10:59 Ondansetron Inj 4 Mg/2 Ml Vial IV PUSH Q4H PRN Nausea Oxybutynin Chloride 15 mg 09/05/24 09:00 Oxybutynin Chloride Xl 5 Mg Tab.Er.24 PO DAILY [facility] Pantoprazole Sodium 20 mg 09/05/24 09:00 Pantoprazole Sod Sesquihydrate 20 Mg Tab PO QAM [facility] Perflutren Lipid Microsphere 0 ml 09/04/24 11:33 Perflutren Lipid Microspheres 1.5 Ml Vial Diluted To 10 Ml Total Volume IV PUSH 09/07/24 11:33 ONCE PRN adequate visualization Protocol Tamsulosin HCl 0.4 mg 09/05/24 09:00 Tamsulosin Hcl 0.4 Mg Capsule PO DAILY [facility] Vitamin D 5,000 units 09/05/24 09:00 Cholecalciferol 5,000 Units Tablet BY MOUTH DAILY [facility] Radiology Results: ITS Impressions Chest X-Ray 09/04/24 07:39 IMPRESSION: Mild chronic discoid scarring and suggestion of minimal infiltrate or atelectasis in the left lower lobe Labs Labs: Laboratory Results - last 24 hr 09/04/24 09/04/24 09/04/24 08:34 12:09 19:32 WBC RBC Hgb Hct MCV MCH MCHC RDW Plt Count MPV Immature Gran % (Auto) Neut % (Auto) Lymph % (Auto) [place] % (Auto) Eos % (Auto) Baso % (Auto) Lymph # (Auto) [place] # (Auto) Eos # (Auto) Baso # (Auto) Abs Immat Gran (auto) Absolute Neuts (auto) Absolute Nucleated RBC Nucleated RBC % D-Dimer 0.84 H Sodium Potassium Chloride Carbon Dioxide Anion Gap BUN Creatinine Estim Creat Clear Calc Estimated GFR Glucose Calcium Magnesium Troponin I 0.026 D < 0.012 D Triglycerides Cholesterol LDL Cholesterol Direct HDL Direct Influenza A (RT-PCR) Negative Influenza B (RT-PCR) Negative SARS-CoV-2 RNA (RT-PCR) Negative 09/05/24 04:01 WBC 7.3 RBC 4.94 Hgb 13.9 L Hct 42.4 MCV 85.8 MCH 28.1 MCHC 32.8 RDW 15.6 H Plt Count 191 MPV 11.0 H Immature Gran % (Auto) 0.4 Neut % (Auto) 60.1 Lymph % (Auto) 26.9 [place] % (Auto) 11.4 H Eos % (Auto) 0.5 Baso % (Auto) 0.7 Lymph # (Auto) 1.96 [place] # (Auto) 0.8 H Eos # (Auto) 0.0 Baso # (Auto) 0.1 Abs Immat Gran (auto) 0.03 Absolute Neuts (auto) 4.4 Absolute Nucleated RBC 0.000 Nucleated RBC % 0.0 D-Dimer Sodium 132 L Potassium 3.6 Chloride 104 Carbon Dioxide 23 Anion Gap 5 BUN 10 Creatinine 0.56 L Estim Creat Clear Calc 101 Estimated GFR > 60 Glucose 109 Calcium 8.2 L Magnesium 1.9 Troponin I Triglycerides 94 Cholesterol 146 LDL Cholesterol Direct 59 HDL Direct 70 Influenza A (RT-PCR) Influenza B (RT-PCR) SARS-CoV-2 RNA (RT-PCR)
--- NOTE | 2024-09-05 08:00 | EST_ITS ---
Patient Info Name: Pradeep Johnson Age: 83 years : 1940 Gender: Male Ht: 73 in Wt: 221 lbs BSA: 2.29 m2 HR: 79 bpm BP: 145 / 64 mmHg Exam Date: 09/05/2024 8:55 AM Exam Location: Echo Lab Patient Status: Inpatient Admit Date: 09/04/2024 Staff Ordering Physician: Oj Mahoney DO Attending Provider: Abdirashid Villeda MD Exercise Technologist: Nitza Casarez RDCS Exercise Physician: Oj Mahoney DO Exam Type: CA stress dena w NM Study Info A regadenoson stress test was performed. Summary 1. 1. Negative lexiscan stress test for ischemic ST changes by ECG criteria. 2. 2. Baseline hypertension. 3. 3. Nuclear scan to follow and will be reported separately. Please correlate with it. 4. 4. Patient informed of the above results. Protocol: Lexiscan Stress ECG Details Stage: REST Duration (min): 1 min : 25 sec HR (bpm): 79 SBP (mmHg): 145 DBP (mmHg): 64 Stage: REST Duration (min): 15 min : 41 sec HR (bpm): 82 SBP (mmHg): 145 DBP (mmHg): 64 Stage: STAGE 1 Duration (min): 0 min : 59 sec HR (bpm): 81 SBP (mmHg): 137 DBP (mmHg): 62 Stage: RECOVERY Duration (min): 1 min : 0 sec HR (bpm): 89 SBP (mmHg): 137 DBP (mmHg): 62 Stage: RECOVERY Duration (min): 2 min : 0 sec HR (bpm): 87 SBP (mmHg): 137 DBP (mmHg): 62 Stage: RECOVERY Duration (min): 3 min : 0 sec HR (bpm): 85 SBP (mmHg): 144 DBP (mmHg): 64 Stage: RECOVERY Duration (min): 3 min : 5 sec HR (bpm): 85 SBP (mmHg): 144 DBP (mmHg): 64 Rest HR: 82 bpm Peak HR: 91 bpm Rest Sys BP: 145 mmHg Peak Sys BP: 144 mmHg Max Pred HR: 138 bpm % Max Pred HR: 66 % Target HR: 117 bpm Max RPP: 13,104 bpm*mmHg Termination Reason: Completed protocol Cardiac Symptoms: Shortness of breath Total Time: 1 min : 0 sec Rest Reid BP: 64 mmHg Peak Reid BP: 64 mmHg Total Dose: 0.4 mg Resting ECG Sinus rhythm. Stress ECG No ST changes. Arrhythmias None. Report Signatures
[2024-09-05] MEDS: MULTIVITAMINS THERAPEUTIC TAB (*BKC) 1 TABLET PO (10:06)
[2024-09-05] MEDS: TAMSULOSIN HCL 0.4 MG CAPSULE PO (10:06)
[2024-09-05] MEDS: PANTOPRAZOLE SOD SESQUIHYDRATE 20 MG TAB PO (10:07)
[2024-09-05] MEDS: oxyBUTYnin CHLORIDE XL 5 MG TAB.ER.24 15 MG PO (10:08)
[2024-09-05] MEDS: METOPROLOL SUCCINATE EXT REL 25 MG TABCR PO (10:08)
[2024-09-05] MEDS: ENOXAPARIN 40 MG/0.4 ML SYRINGE SUB-Q (10:09)
[2024-09-05] MEDS: CHOLECALCIFEROL 5,000 UNITS TABLET 5000 UNITS BY MOUTH (10:09)
[2024-09-05] MEDS: CYANOCOBALAMIN 1,000 MCG TABLET 1000 MCG BY MOUTH (10:09)
--- NOTE | 2024-09-05 15:19 | P.DS_ITS ---
DS: Admitting Diagnosis Discharge Date 09/05/2024 Admitting Diagnosis Chest pain DS: Discharge Diagnosis Discharge Diagnosis (1) Chest pain: Code(s): R07.9 - Chest pain, unspecified Status: Acute (2) Essential (primary) hypertension: Code(s): I10 - Essential (primary) hypertension Status: Acute (3) Prediabetes: Code(s): R73.03 - Prediabetes Status: Acute DS: Summary Hospital Course Hospital Course: This is an 83-year-old male with history of hypertension, prediabetes, pancreatic cancer status post Whipple procedure in 2014, GI bleed due to intestinal ulcers in June 2023, gastroesophageal reflux disease, and benign prostatic hyperplasia who presented to the emergency department via EMS for evaluation of chest pain. The patient provides the history. He has had cold symptoms the last several days, mainly with sinus congestion and postnasal drip but otherwise went to bed last night in his usual state of health. He was wakened from sleep around midnight with pain in the right breast which has since moved to the substernal region. He describes a sharp and shooting pain though it is not necessarily pleuritic. He felt a little short of breath with that as well but that has since resolved. He denies dizziness, syncope, near syncope, sweats, nausea, vomiting, abdominal pain, bloating, belching, melena, hematochezia, orthopnea, paroxysmal nocturnal dyspnea, and calf pain. He has not had any recent traumas or falls and denies doing any recent heavy lifting. In the ED: Vital signs were stable on arrival. Labs are significant for WBC count of 12.5, sodium 134, glucose 134, troponin < 0.012. EKG showed sinus rhythm without acute ST segment elevations or depressions. He received aspirin 324 mg p.o. enoxaparin 100 mg and he is being admitted in this setting for close monitoring and Cardiology consultation. Cardiology evaluated the patient. Lexiscan was performed which shows no definitive ischemia or infarct, normal left ventricular ejection fraction measuring more than 70%. Possible patient had costochondritis. Echo was performed advised to follow up the results with the Cardiology. Currently patient denies any chest pain, shortness of breath, palpitation or diaphoresis. Advised to seek ED if chest pain reoccurs. Patient needs to see PCP and Cardio logy within 2 weeks upon discharge. Status at Discharge Cognitive/behavioral status at discharge: Stable Time Spent with Patient Time attestation: Total time spent providing and/or coordinating discharge services: 45 minutes Exam Narrative: General: Well-developed, nontoxic-appearing gentleman the semi-Perez position in bed. Weight: 100.9 kg. BMI: 28.6. HEENT: PERRL, EOMI. Sclera anicteric. Oral mucosa moist. Oropharynx clear. Neck: Supple. Respiratory: Lungs are clear to auscultation bilaterally. Cardiovascular: Regular rate and rhythm with S1-S2. Chest: No tenderness to palpation over the chest wall. Gastrointestinal: Abdomen is soft, nontender, and nondistended with positive bowel sounds. Skin: Warm and dry. No rash or lesions on limited exam. Extremities: No cyanosis or clubbing. Trace milo ankle edema bilaterally. No palpable knots or cords. Negative Lilly sign bilaterally. Radial and pedal pulses intact. Neurological: Alert. Cranial nerves 2-12 are grossly intact. No gross focal deficits to casual conversation. Psychiatric: Pleasant and cooperative with normal mood and affect. Judgment and insight intact. DS: Data Data Completed and Pending Labs on day of discharge: Labs from last 24 hours 09/05/24 09/04/24 04:01 19:32 WBC 7.3 RBC 4.94 Hgb 13.9 L Hct 42.4 MCV 85.8 MCH 28.1 MCHC 32.8 RDW 15.6 H Plt Count 191 MPV 11.0 H Immature Gran % (Auto) 0.4 Neut % (Auto) 60.1 Lymph % (Auto) 26.9 Eaton % (Auto) 11.4 H Eos % (Auto) 0.5 Baso % (Auto) 0.7 Lymph # (Auto) 1.96 Eaton # (Auto) 0.8 H Eos # (Auto) 0.0 Baso # (Auto) 0.1 Abs Immat Gran (auto) 0.03 Absolute Neuts (auto) 4.4 Absolute Nucleated RBC 0.000 Nucleated RBC % 0.0 D-Dimer 0.84 H Sodium 132 L Potassium 3.6 Chloride 104 Carbon Dioxide 23 Anion Gap 5 BUN 10 Creatinine 0.56 L Estim Creat Clear Calc 101 Estimated GFR > 60 Glucose 109 Calcium 8.2 L Magnesium 1.9 Triglycerides 94 Cholesterol 146 LDL Cholesterol Direct 59 HDL Direct 70 Influenza A (RT-PCR) Negative Influenza B (RT-PCR) Negative SARS-CoV-2 RNA (RT-PCR) Negative Discharge Plan Discharge Attending physician on discharge: Adam Mcdonnell Consulting providers: Oj Mahoney Discharging Clinician: Adam Mcdonnell Anticipated Discharge Date/Time: 09/05/24 15:14 Patient Disposition: Home, Self-Care Activity: as tolerated Diet: heart healthy Discharge Instructions: Needs to follow up with PCP and real estate site analyst within a week upon discharge Follow up on echo results. Patient Instructions: Antibiotic Form, Nuclear Stress Test (GEN) Patient Language: Dominican Stand Alone Forms: General Discharge Information Follow-up/Referrals: Oj Mahoney DO [Physician] - Sonali Vasquez MD [Primary Care Provider] - Discharge Medications: Continued oxybutynin chloride 15 mg tablet extended release 24hr 15 mg PO DAILY multivitamin [Daily Multi-Vitamin] Tablet 1 tablet PO DAILY cholecalciferol (vitamin D3) 125 mcg (5,000 unit) capsule 125 mcg PO DAILY pantoprazole 20 mg tablet,delayed release (DR/EC) 20 mg PO QAM Qty: 100 2RF [facility] 1 tab-cap PO DAILY cyanocobalamin (vitamin B-12) 1,000 mcg tablet, sublingual 1,000 mcg sublingual DAILY Qty: 90 1RF ferrous sulfate 325 mg (65 mg iron) tablet 325 mg PO BID Qty: 180 1RF tamsulosin 0.4 mg capsule 0.4 mg PO DAILY Qty: 90 1RF metoprolol succinate 25 mg tablet extended release 24 hr 25 mg PO DAILY Qty: 90 1RF amlodipine 10 mg tablet 10 mg PO DAILY Qty: 90 1RF Date of admission: 09/04/24 10:59 Primary Care Provider: Sonali Vasquez Admitting Provider: Abdirashid Villeda Attending physician on admission: Abdirashid Villeda Condition: Stable
== END 2024-09-05 16:30 | disposition home or self-care (01) ==
LOC: ANHED 10:54 → ANHIMU 16:02
PROVIDERS: Emergency Medicine; Physician Assistant; Admitting Provider Internal Medicine; Emergency Provider Emergency Medicine; PCP Family Medicine; Visit Provider General Practice
DX: R07.9 Chest pain, unspecified (principal); I10 Essential (primary) hypertension; R73.03 Prediabetes; R06.09 Other forms of dyspnea; N40.0 Benign prostatic hyperplasia without lower urinary tract symptoms; K21.9 Gastro-esophageal reflux disease without esophagitis; Z20.822 Contact with and (suspected) exposure to COVID-19; Z85.07 Personal history of malignant neoplasm of pancreas; Z79.899 Other long term (current) drug therapy
CPT/HCPCS: 36415; 71046; 78452; 80048; 80053; 80061; 83690; 83735; 84484; 85025; 85380; 85610; 85730; 87636; 93005; 93017; 93306; 93970; 96372; 99285; A9270; A9502; G0378; J1650; J2785

== ENCOUNTER 2024-12-27 13:50 | Outpatient (CLI) | payer MEDICARE, SELFPAY ==
--- OUTSIDE RECORDS SUMMARY | 2024-12-27 13:56 | XMS_ITS | Clinical Summary ---
Author Organization [facility] Address [address], [facility] [address] [place] [address] Phone Care Team Providers Care Application Development Project Manager Name Role Phone Conrado Dillon MD Primary Care Provider [phone] Allergies No known active allergies Medications pancrelipase, lipase-protease -amylase, (CREON) [address]43-[id number] Capsule DR Particles Take 1 Cap by mouth 3 times daily (with meals). Active Multiple Vitamins-Minera ls (MULTIVITAMIN PO) Take by mouth. Activ e aspirin EC 81 MG Tablet Delayed Response Take 81 mg by mouth daily. Active Cholecalciferol (VITAMIN D3 PO) Take by mouth. Active polyethylene glycol (MIRALAX) Powder Mix the entire bottle with 64 oz of a clear liquid. Use as directed by the office for colonoscopy prep. 255 g 7 Active pantoprazole (PROTONIX) 20 MG Tablet Delayed Response Take 1 Tab by mouth daily. 90 Tab 3 0 Active Active Problems No known active problems Family History Medical History Relation Name Comments Heart Disease Brother Kidney Cancer Brother Stroke Brother Emphysema Father Liver Cancer Mother Relation Name Status Comments Brother Father Mother Social History Tobacco Use Types Packs/Day Years Used Date Smoking Tobacco: Never Smokeless Tobacco: Never Tobacco Cessation:Counseling Given: No Alcohol Use Standard Drinks/Week Comments Yes 7 (1 standard drink = 0.6 oz pur e alcohol) Sex and Gender Information Value Date Recorded Sex Assigned at Not on file Legal Sex Male 9:20 PM CDT Gender Identity Not on file Sexual Orientation Not on file Last Filed Vital Signs Vital Sign Reading Time Taken Comments Blood Pressure 160/88 08/06/2017 1:01 PM [employer] Pulse 96 08/06/2017 1:01 PM [employer] Temperature 36.4 C (97.5 F) 08/06/2017 1:01 PM [employer] Respiratory Rate - - Oxygen Saturation 96% 08/06/2017 1:01 PM [employer] Inhaled Oxygen Concentration - - Weight 110.3 kg (243 lb 1.6 oz) 08/06/2017 1:01 PM [employer] Height 188 cm (6' 2 ) 08/06/2017 1:01 PM [employer] Body Mass Index 31.21 08/06/2017 1:01 PM [employer] Plan of Treatment Health Maintenance Due Date Last Done Comments Hepatitis C Virus (HCV) Screening 1940 TdaP Immunization 1940 Pneumococcal Immunization (5 0+ years) (1 of 1 - PCV) 11/16/1991 Zoster Immunization (1 of 2) 11/16/1991 Respiratory Syncytial Virus (RSV) Immunization (Adult) (1 - 1-dose 75+ series) 2016 Influenza Immunization (#1) 2024 SARS-COV-2 Immunization ( - season) 2024 Hepatitis B Immunization Aged Out No longer eligible based on patient's age to complete this topic Meningococcal Immunization (ACWY) Aged Out No longer eligible based on patient's age to complete this topic Rotavirus Immunization Aged Out No lo nger eligible based on patient's age to complete this topic Care Teams Application Development Project Manager Relationship Specialty Start Date End Date Conrado Dillon MD [address] [place] [address] PCP - General Family Medicine 08/06/17
--- OUTSIDE RECORDS SUMMARY | 2024-12-27 13:56 | XMS_ITS | Encounter Summary ---
Author Organization [facility] Address [address] [place] [address] Phone Care Team Providers Care Cushion Gum Applicator Name Role Phone Adelina Dillon MD Primary Care Provider [phone] Reason for Visit * Reason Comments Medication Refill Encounter Details Date Type Department Care Team (Late st Contact Info) Description 11/01/2020 Refill [facility] - Gastroenterology [facility] [address] [place] [address] José Pathak, DO [address] [facility] [place] [address] Medication Refill Social History Tobacco Use Types Packs/Day Years Used Date Smoking Tobacco: Never Smokeless Tobacco: Never Alcohol Use Standard Drinks/Week Comments Yes 7 (1 standard drink = 0.6 oz pur e alcohol) Sex and Gender Information Value Date Recorded Sex Assigned at Not on file Legal Sex Male 9:20 PM CDT Gender Identity Not on file Sexual Orientation Not on file documented as of this encounter Miscellaneous Notes * Telephone Encounter - Elen Conway CMA - 11/01/2020 9:04 AM FARM HAND Patient notified 11/10/2019 future refills to go through primary, patient has not been seen since 08/06/2017 HAND documented in this encounter Plan of Treatment Not on file documented as of this encounter Visit Diagnoses Not on filedocumented in this encounter Care Teams Cushion Gum Applicator Relationship Specialty Start Date End Date Adleina Dillon MD [address] [place] [address] PCP - General Family Medicine 08/06/17 documented as of this encounter
[2024-12-27 20:04] LABS: Alanine Aminotransferase 22 U/L (6-50); Albumin Level 4.1 g/dL (3.5-5.1); Alkaline Phosphatase 109 U/L (38-126); Anion Gap 9 mmol/L (4-12); Aspartate Amino Transferase 31 U/L (17-59); Bilirubin,Total 0.5 mg/dL (0.2-1.3); Blood Urea Nitrogen 11 mg/dL (9-20); Carbon Dioxide 27 mmol/L (22-30); Chloride 102 mmol/L (98-107); Estimated Glomerular Filt Rate > 60; Glucose 136 mg/dL (65-110); Potassium 4.6 mmol/L (3.4-5.0); Sodium 138 mmol/L (137-145)
[2024-12-27 20:15] LABS: Basophils Absolute Auto 0.1 K/mm3 (0.0-0.1); Basophils Percent Auto 1.1 % (0.2-1.2); Eosinophils Absolute Auto 0.1 K/mm3 (0-0.3); Eosinophils Percent Auto 1.5 % (0-4.4); Hematocrit 52.6 % (42.0-52.0); Hemoglobin 16.2 g/dL (14.0-18.0); Immature Granulocyte Absolute 0.01 K/mm3 (0.00-0.031); Immature Granulocyte Percent A 0.2 % (0-0.5); Immature Platelet Fraction Pct 4.6 % (0.9-11.2); Lymphocytes Absolute Auto 2.57 K/mm3 (0.9-3.2); Lymphocytes Percent Auto 38.6 % (18.3-44.2); Mean Corpuscular HGB Conc 30.8 g/dl (32-36); Mean Corpuscular Hemoglobin 28.3 pg (26-34); Mean Platelet Volume 11.6 fl (7.4-10.4); Monocytes Absolute Auto 0.6 K/mm3 (0.1-0.6); Monocytes Percent Auto 9.5 % (2.6-8.5); Neutrophils Absolute Auto 3.3 K/mm3 (1.3-6.7); Neutrophils Percent Auto 49.1 % (45.5-73.1); Platelet Count Result 225 k/mm3 (150-375); Red Blood Count 5.72 M/mm3 (4.6-6.20); Red Cell Distribution Width 15.9 % (11.5-14.5); White Blood Count 6.7 K/mm3 (4.5-10.0)
[2024-12-27 20:57] LABS: Platelet Estimate Adequate (Adequate); Schistocytes None Seen
[2024-12-27 21:09] LABS: Hemoglobin A1C 5.2 % (<5.7)
== END 2024-12-27 13:51 | disposition home or self-care (01) ==
LOC: ANHGOSHLAB 13:51
PROVIDERS: PCP Family Medicine; Visit Provider Family Medicine
DX: R73.03 Prediabetes (principal); I10 Essential (primary) hypertension; D64.9 Anemia, unspecified
CPT/HCPCS: 36415; 80053; 83036; 85025; 85055